=== PATIENT | female | born 1940 | race Caucasian/White ===

== ENCOUNTER 2019-11-12 05:38 | Observation (INO) | payer MEDICARE, OTHER ==
--- NOTE | 2019-11-09 16:06 | Diagnostic Imaging Report ---
EXAM: CHEST 2 VIEWS DATE: 11/09/2019 3:49 PM INDICATION: Preoperative evaluation COMPARISON: None FINDINGS: The trachea is midline. The lungs are symmetrically expanded without evidence for large focal consolidation, pneumothorax, or significant pleural effusion. The cardiomediastinal silhouette and pulmonary vasculature are within normal limits. Partially visualized cervical fusion hardware noted. There are degenerative changes of the visualized spine. No acute osseous abnormality is identified. The surrounding soft tissues are unremarkable. IMPRESSION: No acute cardiopulmonary process identified. Signed by: Dr. Gregor Pepper MD on 11/09/2019 4:03 PM
[2019-11-09 16:43] LABS: BASOPHILS % 0.5 % (0.0-1.0); EOSINOPHILS # (AUTO) 0.2 (0.0-0.4); EOSINOPHILS % 3.2 % (0.0-6.0); HEMATOCRIT 33.7 % (34.2-44.1); HEMOGLOBIN 10.9 g/dL (12.0-16.0); LYMPHOCYTES # (AUTO) 1.6 (1.0-3.2); MEAN CORPUSCULAR HEMOGLOBIN 30.7 pg (28-32); MEAN CORPUSCULAR HGB CONC 32.3 g/dL (31-35); MEAN CORPUSCULAR VOLUME 94.9 fL (81-99); MONOCYTES # (AUTO) 0.4 (0.2-0.8); MONOCYTES % 6.7 % (4.4-11.3); NEUTROPHILS # (AUTO) 4.3 (2.1-6.9); NEUTROPHILS % 65.4 % (38.7-80.0); PLATELET COUNT 271 x10e3/uL (140-360); RED BLOOD COUNT 3.55 x10e6/uL (3.6-5.1)
[2019-11-09 16:56] LABS: INR 0.97; PROTHROMBIN TIME 13.5 seconds (11.9-14.5)
[2019-11-09 16:57] LABS: PARTIAL THROMBOPLASTIN TIME 26.1 seconds (23.8-35.5)
[2019-11-09 17:01] LABS: ANION GAP 12.5 mmol/L (8-16); CALCIUM 9.3 mg/dL (8.4-10.2); CREATININE, SERUM 1.72 mg/dL (0.57-1.11); POTASSIUM 4.5 mmol/L (3.5-5.1)
[~2019-11-12] VITALS: Ht 157.5 cm; Wt 58.6 kg
[~2019-11-12 05:38] MED LIST: BACLOFEN10 MG PO; BUPROPION HCL75 MG PO; CRESTOR10 MG PO; DIOVAN HCT 80-1 EACH PO; FENOFIBRATE145 MG; NAMENDA10 MG PO; NAPROXEN250 MG PO; PROZAC20 MG PO; TRAZODONE HCL50 MG PO; TRICOR145 MG PO
[2019-11-12] MEDS ORDERED: THROMBIN FOR SOLN 5,000 UNIT VIAL ONE (06:51)
[2019-11-12] MEDS ORDERED: BACITRACIN 50,000 UNIT VIAL ONE (06:51)
[2019-11-12] MEDS ORDERED: BUPIVACAINE 0.25%/EPI 30ML SDV INJ ONE (06:51)
[2019-11-12] MEDS ORDERED: ACETAMINOPHEN 1000 MG/100 ML 100 ML IV ONE (07:21)
[2019-11-12] MEDS ORDERED: IBUPROFEN 800MG/ 200ML 200 ML IV ONE (07:21)
[2019-11-12] MEDS ORDERED: LIDOCAINE HCL (LTA) 4 ML SOLN ONE (07:21)
[2019-11-12] MEDS ORDERED: CEFAZOLIN SOD 1 GM/NS 50ML 50 ML IV ONE (07:34)
[2019-11-12] MEDS ORDERED: ZOLPIDEM TARTRATE 5 MG TAB PO PRN (10:00)
[2019-11-12] MEDS ORDERED: HYDROMORPHONE 2MG/ML 2 MG/ML ML IV PRN ×2 (10:00→14:00)
[2019-11-12] MEDS ORDERED: MORPHINE SULFATE 5 MG/ML VIAL IM PRN (10:00)
[2019-11-12] MEDS ORDERED: CARISOPRODOL 350 MG TAB PO PRN (10:00)
[2019-11-12] MEDS ORDERED: MAGNESIUM/ALUMINUM/SIMETHICONE 30 ML UDC PO PRN (10:00)
[2019-11-12] MEDS ORDERED: ONDANSETRON HCL INJ 2MG/ML 2ML 2 MG/ML VIAL IV PRN (10:00)
[2019-11-12] MEDS ORDERED: ACETAMINOPHEN 325 MG TAB PO PRN (10:00)
[2019-11-12] MEDS ORDERED: PROMETHAZINE HCL (IM) 25 MG/ML VIAL IM PRN (10:00)
[2019-11-12] MEDS ORDERED: OXYCODONE/ACETAMINOPHEN 5-325 1 EACH TABLET PO PRN ×2 (10:00→19:30)
[2019-11-12] MEDS ORDERED: CEPACOL SORE THROAT LOZENGES PO PRN (10:00)
--- NOTE | 2019-11-12 12:50 | Operative Report ---
DATE OF PROCEDURE: 11/12/2019 SURGEON: Zeke Strickland MD PREOPERATIVE DIAGNOSIS: Severe L4-L5 spinal stenosis with neurogenic claudication, M48.062. POSTOPERATIVE DIAGNOSIS: Severe L4-L5 spinal stenosis with neurogenic claudication, M48.062. PROCEDURE: 1. L4 bilateral decompressive laminectomy and L4-L5 bilateral medial facetectomies, 30390. 2. L5 bilateral partial decompressive laminectomy, 67425. ANESTHESIA: General. INDICATIONS: The patient is a 79-year-old woman who presents with severe L4-L5 spinal stenosis with neurogenic claudication. She was taken to surgery for bilateral decompressive laminectomy. PROCEDURE IN DETAIL: After induction of general anesthesia, the patient was placed on the operating table in prone position over Devaughn frame. Lumbar region was prepped and draped in sterile fashion. A preoperative x-ray was obtained. A small midline incision was created. The lumbar fascia was opened along the midline and subperiosteal dissection was carried out to expose the L4 and L5 lamina and the medial aspect of the hypertrophic facet joint. The 2nd x-ray confirmed correct localization. The operating microscope was brought in. The spinous processes of L4 and L5 were resected. A high-speed drill equipped with a 5 mm yahaira bur was used to drill the inferior 2/3 of lamina of L4 and superior 1/3 of the lamina of L5 and the medial rim of the L4-L5 facet joints bilaterally. The markedly hypertrophic ligamentum flavum was carefully dissected free of the dura and resected in a piecemeal fashion with 2 mm Kerrison rongeurs until the dura and the traversing L5 nerve roots were fully exposed and decompressed. Meticulous hemostasis was secured. Small piece of Gelfoam was left in the lateral recesses to maintain hemostasis. A small Hemovac drain was placed over the dura and brought out through a separate stab incision. The wound was irrigated and closed with 0 and 2-0 Vicryl sutures and 3-0 Monocryl sutures for the subcuticular layer. Steri-Strips and dressing were applied. The patient was awakened, extubated, and taken to postanesthesia care in stable condition. No intraoperative complications were encountered. ESTIMATED BLOOD LOSS: 20 mL. Zeke Strickland MD PP/MODL /[id number]
[2019-11-12] MEDS ORDERED: FENTANYL CITRATE/PF 100MCG/2 ML INJ ONE ×2 (13:20→20:18)
--- NOTE | 2019-11-12 14:14 | NUR ---
RECEIVED PATIENT FROM PACU. PATIENT A/O X3, EVEN RESPIRATIONS ON RA. LUNG SOUNDS CLEAR. BOWEL SOUNDS PRESENT. LEFT AC 20 GAUGE IV SL. ISRAEL HOSE AND SCD'S IN PLACE. LOWER BACK DRESSING CLEAN, DRY, AND INTACT. HEMOVAC DRAIN IN PLACE. PATIENT DENIES PAIN AT THIS TIME. ORIENTED PATIENT TO ROOM AND CALL LIGHT. BED LOW, WHEELS LOCKED, SIDE RAILS X2. CALL LIGHT IN REACH WILL CONTINUE TO MONITOR PATIENT.
[2019-11-12 14:40] VITALS: BP 155/66
[2019-11-12] MEDS ORDERED: ROCURONIUM BROMIDE 10 MG/ML 5ML VIAL IV ONE ×2 (14:41→14:43)
[2019-11-12] MEDS ORDERED: PROPOFOL IV EMULSION 10 MG/ML 20 ML VIAL ONE ×2 (14:41→14:43)
[2019-11-12] MEDS ORDERED: DEXAMETHASONE SOD PHOS INJ 4 MG/ML VIAL ONE ×2 (14:41→14:43)
[2019-11-12] MEDS ORDERED: ONDANSETRON HCL INJ 2MG/ML 2ML 2 MG/ML VIAL ONE ×2 (14:41→14:43)
[2019-11-12] MEDS ORDERED: GLYCOPYRROLATE INJ 0.2 MG/ML VIAL ONE ×2 (14:41→14:43)
[2019-11-12] MEDS ORDERED: LIDOCAINE HCL 2% LOCAL INJ 5 ML SDV VIAL INJ ONE ×2 (14:41→14:43)
[2019-11-12] MEDS ORDERED: NEOSTIGMINE 1 MG/ML 10ML VIAL ONE ×2 (14:41→14:43)
[2019-11-12] MEDS ORDERED: SEVOFLURANE INHAL SOLN 250 ML PEN BTL ONE ×2 (14:41→14:43)
[2019-11-12 14:52] VITALS: BP 155/66
[2019-11-12 14:56] VITALS: BP 155/66
[2019-11-12] MEDS: LACTATED RINGER'S 1,000 ML IV SCH ×2 (15:43→23:08)
--- NOTE | 2019-11-12 17:32 | NUR ---
PATIENT HAS VOIDED SINCE SURGERY.
[2019-11-12] MEDS: MEMANTINE 10 MG TAB PO SCH (17:41)
[2019-11-12] MEDS: CEFAZOLIN SOD 1 GM/NS 50ML 50 ML IV SCH (17:41)
[2019-11-12 20:00] VITALS: BP 166/74
[2019-11-12] MEDS ORDERED: TRAZODONE HCL 50 MG TAB PO SCH (21:00)
[2019-11-12] MEDS ORDERED: SIMVASTATIN 20 MG TAB PO SCH (21:00)
[2019-11-13] VITALS: BP 137/68
[2019-11-13] MEDS: CEFAZOLIN SOD 1 GM/NS 50ML 50 ML IV SCH ×2 (01:09→09:51)
[2019-11-13 04:00] VITALS: BP 140/58
--- NOTE | 2019-11-13 07:17 | NUR ---
REPORT GIVEN TO DAYSHIFT NURSE. PATIENT IN STABLE CONDITION. BED LOCKED AND IN LOW POSITION. CALL LIGHT WITHIN REACH. NO SIGNS IV INFILTRATION.
[2019-11-13] MEDS: LACTATED RINGER'S 1,000 ML IV SCH ×2 (07:40→16:00)
[2019-11-13 08:00] VITALS: BP 143/100
[2019-11-13] MEDS ORDERED: BUPROPION HCL 75 MG TAB PO SCH (09:00)
[2019-11-13] MEDS ORDERED: FLUOXETINE HCL 20 MG CAP PO SCH (09:00)
--- NOTE | 2019-11-13 09:30 | NUR ---
HEMOVAC REMOVED FROM PATIENTS BACK, 2X2 GAUZE WITH PAPER TAPE USED TO COVER HEMOVAC PUNCTURE SITE, ALL SUTURE MATERIAL REMOVED FROM HEMOVAC SITE.
[2019-11-13] MEDS: MEMANTINE 10 MG TAB PO SCH (09:52)
[2019-11-13 10:00] VITALS: BP 143/100
[2019-11-13 12:00] VITALS: BP 156/63
[2019-11-13 16:00] VITALS: BP 158/64
--- NOTE | 2019-11-13 16:16 | NUR ---
HEMOVAC REMOVAL SITE HAS NOT DRAINED, DRESSING IS DRY.
== END 2019-11-13 16:45 | disposition home or self-care (01) ==
LOC: OR 05:38 → PACU V 09:55 → MED/SURG 14:25
PROVIDERS: ADMIT Neurological Surgery; ATTEND Neurological Surgery
DX: M48.062 Spinal stenosis, lumbar region with neurogenic claudication (principal)
CPT/HCPCS: 36415; 63047; 63048; 71046; 72020; 80048; 85025; 85610; 85730; 86850; 86900; 87635; 88304; 88311; 93005; 97161; 97530; G0378 ×2; J0131; J0690 ×2; J1100; J2001; J2405 ×2; J2704; J2710; J3010; J7121

== ENCOUNTER 2020-01-25 12:29 | Emergency (ER) | payer MEDICARE, OTHER ==
[2020-01-25] MEDS ORDERED: SODIUM CHLORIDE 0.9% 1000ML 1,000 ML IV STA (12:49)
[2020-01-25] MEDS ORDERED: ONDANSETRON HCL INJ 2MG/ML 2ML 2 MG/ML VIAL IV STA (12:49)
[2020-01-25] MEDS ORDERED: ACETAMINOPHEN 325 MG TAB PO ONE (13:00)
--- NOTE | 2020-01-25 13:34 | Diagnostic Imaging Report ---
Exam: Head CT without contrast History: Dizziness, altered mental status Comparison studies: None Technique: Axial images were obtained from the skull base to the vertex. Coronal and sagittal images reconstructed from the axial data. Dose modulation, iterative reconstruction, and/or weight based adjustment of the mA/kV was utilized to reduce the radiation dose to as low as reasonably achievable. Findings: Scalp: No abnormalities. Bones: No fractures, blastic or lytic lesions. Brain sulci: Mildly prom and. Ventricles: Mild compensatory dilatation. No hydrocephalus. Extra-axial spaces: No masses, no fluid collection. Parenchyma: No mass, acute hemorrhage or acute or chronic cortical insults. A few subtle hypodensities in the supratentorial white matter are nonspecific but are most compatible with chronic microvascular ischemic changes. Sellar/suprasellar region: Craniocervical junction: Patent foramen magnum. No Chiari one malformation. Incidental findings: Bilateral intraocular lens replacements. Atherosclerotic calcifications in the carotid siphons. IMPRESSION: 1. No acute intracranial abnormalities. 2. Mild generalized parenchymal volume loss. 3. Mild chronic microvascular ischemic changes. Signed by: Dr. Wilfred Lieberman M.D. on 01/25/2020 1:30 PM
--- OUTSIDE RECORDS SUMMARY | 2020-01-25 13:37 | XMS REPORT | Continuity of Care Document ---
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 Name Role Phone [employer] Unavailable Un available Problems Problem Status Onset Date Classification Date Reported Comments Source Low back pain 05/10/2018 11/23/2018 [facility] Syncope and collapse 02/28/2018 09/13/2018 [facility] DX: [id number] AND COLLAPSE A ctive 02/21/2018 [facility] Pain in right foot 11/23/2018 JIMMY Gonzalez Other intervertebral disc degeneration, lumbar region 11/23/2018 JIM[facility] Gonzalez Other specified symptoms and signs invol ving the circulatory and respiratory systems 09/13/2018 [facility] Occlusion and stenosis of bilateral carotid arteries 09/13/2018 [facility] Medications No Data Provided for This Section Allergies, Adverse Reactions, Alerts Substance Category Reaction Severity Reaction type Status Date Reported Comments Source No Known Medication Allergies [facility] Immunizations Immunization Date Given Site Status Last Updated Comments Source pneumococcal 23-valent vaccine 07/24/2006 Right deltoid completed Jean JIMMY Gonzalez,[facility] Results No Data Provided for This Section Pathology Reports No Data Provided for This Section Diagnostic Reports Report Value Date Source Foot series DX Exam: Foot seri es DX, right, 3 views Reason for Exam: - right foot pain Comparison Exam: None Discussion: No fractures or dislocations are seen of the right foot. Moderate osteoarthritic changes seen within the 4th digit. No intraosseous lesions. No radiopaque foreign bodies. Impression: 1. No acute bony abnormalities seen wit hin the right foot. 05/05/2018 [facility] Gonzalez Spine lumbar series DX Exam: S pine lumbar series DX Reason for Exam: - lumbar spine pain Comparison Exam: X-ray 07/20/2016 Discussion: 5 non rib-bearing lumbar vertebral tracey s are seen. Vertebral body heights are maintained. No scoliosis identified. Grade 1 retrolisthesis seen of L3 on L5. Prominent right lateral bridging osteophyte formation seen at the L3/L4 level. Multilevel degenerative disc disease most prominent at the L3/L4 level. No suspicious osteoblastic or osteolytic lesions. Note that a lumbar spine x-ray cannot rule out ligamentous injuries or spinal cord abnormalities. No dilated loops of bowel within the visualized portions of the abdomen and pelvis. Impression: 1. Multilevel degenerative disc disease most prominent at the L3/L4 level. 05/05/2018 [facility] Gonzalez Carotid artery Doppler bilat US Patient Name: ROQUE CORRAL : 1940; Age: 77 years Female MR: [id number] Study: Carotid artery Doppler bilat US 02/24/2018 1:35 PM CDT Clinical Indication: - syncope, bruit. COMPARISON: None TECHNIQUE: Back-scale, color Doppler and spectral Doppler of the carotid arteries was performed. Any reported ICA stenoses indirectly reference the distal internal carotid diameter as the denominator for the stenosis measurement, utilizing consensus panel criteria. FINDINGS: RIGHT: No significant plaque. ICA PSV 106 cm/sec CCA PSV 85 cm/sec ICA/CCA ratio 1.25 Vertebral flow is antegrade. External carotid artery is patent. LEFT: Mild plaque formation. ICA PSV 90 cm/sec CCA PSV 84 cm/sec ICA/CCA ratio 1.07 Vertebral flow is antegrade. External carotid artery is patent. IMPRESSION: 1. RIGHT: ICA stenosis <50% by velocity criteria. 1. LEFT: ICA stenosis <50% by velocity jovita cowart. Consensus panel Doppler US criteria for diagnosis of ICA stenosis: Stenosis (%) ICA PSV (cm/sec) ICA/CCA ratio <50 <125 <2.0 50-69 125-230 2.0-4.0 >70 but less than >230 >4.0 near occlusion Near occlusion High, low, or Variable undetectable SL: [id number] 02/24/2018 [facility] Consultation Notes No Data Provided for This Section Discharge Summaries No Data Provided for This Section History and Physicals No Data Provided for This Section Vital Signs No Data Provided for This Section Encounters Location Location Details Encounter Type Encounter Number Reason For Visit Attending Provider ADM Date DC Date Status Source [facility] [place] [facility] [id number] Uday Jaskaran 09/27/2014 09/28/2014 [facility] [place] [facility] [id number] Uday Jessica 02/24/2018 02/25/2018 [facility] [place] [id number]2018 [facility] [place] Procedures No Data Provided for This Section Assessment and Plan No Data Provided for This Section Plan of Care No Data Provided for This Section Social History Social History Date Source No data available for this section 05/06/2018 [facility] [place] No data available for this section 02/25/2018 [facility] Family History No Data Provided for This Section Advance Directives No Data Provided for This Section Functional Status No Data Provided for This Section
--- NOTE | 2020-01-25 13:38 | Diagnostic Imaging Report ---
TECHNIQUE: Frontal view of the chest. INDICATION: ^Y ^NO APPETITE DUE TO LOSS OF TASTE, ? COVID ^[id number] ^[id number] COMPARISON: 11/09/2019 DISCUSSION: Limited evaluation due to portable technique. Lines and hardware: None Heart and mediastinum: Stable. Lungs and pleura: No focal airspace consolidation. No pleural effusion. No pneumothorax. Soft tissues and bones: No acute abnormality. IMPRESSION: Negative for acute intrathoracic process. Signed by: Brady Espinosa MD on 01/25/2020 1:34 PM
--- OUTSIDE RECORDS SUMMARY | 2020-01-25 13:38 | XMS REPORT | Continuity of Care Document ---
Author Author [facility] t Organization [facility] Address [facility] [place] [address] Phone Unavailable Care Team Providers Care Retail Shift Leader Name Role Phone SYLVESTER JESSICA PCP Higinio CAMEJO Attphys Unavailable KAYLIN JEONG Attphys Unavailable Gerardo Jessica Attphys Lizbeth Jessica Attphys KAYLIN JEONG Admphys Unavailable Gerardo Jessica Admphys Payers Payer Name Policy Type Policy Number Effective Date Expiration Date [facility] [id number] 2019 00:00:00 [facility] Cdc Review Covid19 [id number] [facility] Problems Condition Name Condition Details Condition Category Status Onset Date Resolution Date Last Treatment Date Treating Clinician Comments Source DX: A16=NDOXNNB AND COLLAPSE D X: P94=MVHNSQB AND COLLAPSE Active 02/21/2018 [facility] Active 2018-02-21 00:0 0:00 2018-02-24 13:19:00 Maria Isabel Booker Problem Condition Active [facility] Pain in right foot Pain in right foot 11/23/2018 [facility] Problem 2018-11-23 11:30:35 Maria Isabel Booker Other intervertebral disc degeneration, lumbar region Other intervertebral disc degeneration, lumbar region 11/23/2018 [facility] Problem 2018-11-23 11:30:35 Sergio Booker Other specified symptoms and signs invol ving the circulatory and respiratory systems Other specified symptoms and signs involving the circulatory and respiratory systems 09/13/2018 [facility] Problem 2018-09-13 13:08:36 Maria Isabel Booker Occlusion and stenosis of bilateral carotid arteries Occlusion and stenosis of bilateral carotid arteries 09/13/2018 [facility] Problem 2018-09-13 13:08:36 Maria Isabel Booker Low back pain Low back pain 05/10/2018 11/23/2018 JIMMY Gonzalez Problem 2018-05-10 05:34:11 2018-11-23 11:30:35 2018-11-23 11:30:35 Maria Isabel Booker Syncope and collapse Sync ope and collapse 02/28/2018 09/13/2018 [facility] Problem 2018-02-28 03:24:17 2018-09-13 13:0 8:36 2018-09-13 13:08:36 Maria Isabel Booker Allergies, Adverse Reactions, Alerts Allergy Name Allergy Type Status Severity Reaction(s) Onset Date Inacti ve Date Treating Clinician Comments Source Morphine Allergy to substance Active Mild ITCHES 2009-07-11 00:00:00 [facility] No Known Medication Allergies No Known Medication [facility] Social History Social Habit Start Date Stop Date Quantity Comments Source Social History 2018-02-25 04:59:00 2018-02-25 04:59:00 Maria Isabel Booker Sex Assigned At 1940 00:00:00 1940 00:00:00 [facility] Medications Ordered Medication Name Filled Medication Name Start Date Stop Da te Current Medication? Ordering Clinician Indication Dosage Frequency Signature (SIG) Comments Components Source Bupropion Hcl Bupropion Hcl Yes [facility] Fluoxetine Hcl (Prozac) 20 Mg CAPSULE Fluoxetine Hcl (Prozac) 20 Mg CAPSULE Yes 40 [facility] Memantine Hcl (Namenda) 10 Mg TABLET Memantine Hcl (Namenda) 10 Mg TABLET Yes 10 [facility] Rosuvastatin Calcium (Crestor) 10 Mg TAB Rosuvastatin Calcium (Crestor) 10 Mg TAB Yes 10 [facility] Trazodone Hcl Trazodone Hcl Yes 50 [facility] Baclofen Baclofen 2019-11-09 00:00:00 No 5 [facility] Fenofibrate (Tricor) 145 Mg TAB Fenofibrate (Tricor) 145 Mg TAB 2019-11-09 00:00:00 No 160 Use As Directed [facility] Fenofibrate Nanocrystallized (Fenofibrate) 145 Mg TABL ET Fenofibrate Nanocrystallized (Fenofibrate) 145 Mg TABLET 2019-11-09 00:00:00 No [facility] Naproxen 2019-11-09 00:00:00 No 500 [facility] Valsartan/Hydrochlorothiazide (Diovan Hct 80-12.5 Mg T ablet) 1 Each TABLET Valsartan/Hydrochlorothiazide (Diovan Hct 80-12.5 Mg Tablet) 1 Each TABLET 2019-11-09 00:00:00 No 1 Daily [facility] Vital Signs Vital Name Observation Time Observation Value Comments Source Body Temperature 2019-11-13 12:00:00 97.7 [degF] [facility] Weight 2019-11-12 14:52:00 129.25 [lb_av] [facility] BMI (Body Mass Index) 2019-11-12 14:52:00 23.6 kg/m2 [facility] Procedures Procedure Date / Time Performed Performing Clinician [facility] X-ray of chest, two views 2019-11-09 00:00:00 I [facility] Plan of Care Planned Activity Planned Date Details Comments Source Instructions [facility] Encounters Start Date/Time End Date/Time [facility] ID Source 2018-05-05 14:32:00 2018-05-05 23:59:00 [id number] 2018-02-24 13:10:00 2018-02-24 23:59:00 Outpatient Higinio Jessica [id number] 2014-09-27 13:06:00 2014-09-27 23:59:00 Outpatient Higinio Jessica [id number] Results Test Description Test Time Test Comments Results Result Comments Source CT BRAIN WO 2020-01-25 13:27:00 [facility] [address] [address] Patient Name: ROQUE CORRAL MR #: [id number] : 1940 Age/Sex: 79/F Req #: [id number] Adm Physician: Ordered by: LENA CAMEJO MD Report #: [id number] Location: ER Room/Bed: Procedure: [id number] CT/CT BRAIN WO Exam Date: 01/25/20 Exam Time: 1307 REPORT STATUS: Signed Exam: Head CT without contrast History: Dizziness, altered mental status Comparison studies: None Technique: Axial images were obtained from the skull base to the vertex. Coronal and sagittal images reconstructed from the axial data. Dose modulation, iterative reconstruction, and/or weight based adjustment of the mA/kV was utilized to reduce the radiation dose to as low as reasonably achievable. Findings: Scalp: No abnormalities. Bones: No fractures, blastic or lytic lesions. Brain sulci: Mildly prom and. Ventricles: Mild compensatory dilatation. No hydrocephalus. Extra-axial spaces: No masses, no fluid collection. Parenchyma: No mass, acute hemorrhage or acute or chronic cortical insults. A few subtle hypodensities in the supratentorial white matter are nonspecific but are most compatible with chronic microvascular ischemic changes. Sellar/suprasellar region: Craniocervical junction: Patent foramen magnum. No Chiari one malformation. Incidental findings: Bilateral intraocular lens replacements. Atherosclerotic calcifications in the carotid siphons. IMPRESSION: 1. No acute intracranial abnormalities. 2. Mild generalized parenchymal volume loss. 3. Mild chronic microvascular ischemic changes. Signed by: Dr. Heavenly Lieberman M.D. on 01/25/2020 1:30 PM Dictated By: HEAVENLY LIEBERMAN MD 29 Transcribed By: JON on 01/25/201329 COPY TO: LENA CAMEJO MD Blood leukocytes automated count (number/volume) 2019-11-09 16:34:00 Test Item White Blood Count (test code = 6690-2) 6.57 4.8-10.8 [facility] (number/volume)2019-11-09 16:34:00* Test Item Value Reference Range Interpretation Comments Red Blood Count (test code = 789-8) 3.55 3.6-5.1 [facility] measurement (moles/volume)2019-11-09 16:34:00* Test Item Value Reference Range Interpretation Comments Hemoglobin (test code = 30736-3) 10.9 12.0-16.0 [facility] blood hematocrit (volume fraction)2019-11-09 16:34:00* Test Item Value Reference Range Interpretation Comments Hematocrit (test code = 4544-3) 33.7 34.2-44.1 [facility] erythrocyte mean corpuscular kmesdt7150-61-43 16:34:00* Test Item Value Reference Range Interpretation Comments Mean Corpuscular Volume (test code = 787-2) 94.9 81-99 [facility] mean corpuscular hemoglobin (mass per erythrocyte)2019-11-09 16:34:00* Test Item Value Reference Range Interpretation Comments Mean Corpuscular Hemoglobin (test code = 785-6) 30.7 28-32 [facility] eryth[facility] mean corpuscular hemoglobin concentration measurement (mass/volume)2019-11-09 16:34:00* Test Item Value Reference Range Interpretation Comments Mean Corpuscular Hemoglobin Concent (test code = 786-4) 32.3 31-35 [facility] HospitalRDW [id number]-[id number] 16:34:00* Test Item Value Reference Range Interpretation Comments Red Cell Distribution Width (test code = 28697-6) 12.0 11.7 -14.4 [facility] blood platelet count (count/volume)2019-11-09 16:34:00* Test Item Value Reference Range Interpretation Comments Platelet Count (test code = 777-3) 271 140-360 [facility] blood segmented neutrophil count as percentage of total dvzohqtvda0834-20-59 16:34:00* Test Item Value Reference Range Interpretation Comments Neutrophils (%) (Auto) (test code = 98586-0) 65.4 38.7-80.0 [facility] Hospital[facility] blood lymphocyte count as percentage ot total wbliwuaqpa1139-92-87 16:34:00* Test Item Value Reference Range Interpretation Comments Lymphocytes (%) (Auto) (test code = 736-9) 24.0 18.0-39.1 [facility] HospitalAutom[facility] blood monocyte count as percentage of total fxpfeebjpo0487-81-78 16:34:00* Test Item Value Reference Range Interpretation Comments Monocytes (%) (Auto) (test code = 5905-5) 6.7 4.4-11.3 [facility] HospitalAutom[facility] blood eosinophil count as percentage of total wmhmnchgjf5967-45-72 16:34:00* Test Item Value Reference Range Interpretation Comments Eosinophils (%) (Auto) (test code = 713-8) 3.2 0.0-6.0 [facility] HospitalAutomated blood basophil count as percentage of total npgfsquowx0028-15-74 16:34:00* Test Item Value Reference Range Interpretation Comments Basophils (%) (Auto) (test code = 706-2) 0.5 0.0-1.0 [facility] HospitalFluoroscopic procedure less than one hour iwkjythu2960-54-14 16:34:00* Test Item Value Reference Range Interpretation Comments IM GRANULOCYTES % (test code = IM GRANULOCYTES %) 0.2 0.0- 1.0 [facility] HospitalAutom[facility] blood neutrophil count 2019-11-09 16:34:00* Test Item Value Reference Range Interpretation Comments Neutrophils # (Auto) (test code = 751-8) 4.3 2.1-6.9 [facility] HospitalBlood lymphocytes count (number/volume) 2019-11-09 16:34:00* Test Item Value Reference Range Interpretation Comments Lymphocytes # (Auto) (test code = 20041-1) 1.6 1.0-3.2 [facility] HospitalBlood monocytes automated count (number/volume)2019-11-09 16:34:00* Test Item Value Reference Range Interpretation Comments Monocytes # (Auto) (test code = 742-7) 0.4 0.2-0.8 [facility] HospitalAutomated blood eosinophil count 2019-11-09 16:34:00* Test Item Value Reference Range Interpretation Comments Eosinophils # (Auto) (test code = 711-2) 0.2 0.0-0.4 [facility] HospitalAutomated blood basophil count (count/volume)2019-11-09 16:34:00* Test Item Value Reference Range Interpretation Comments Basophils # (Auto) (test code = 704-7) 0.0 0.0-0.1 [facility] HospitalFluoroscopic procedure less than one hour mzwaniyc8154-95-94 16:34:00* Test Item Value Reference Range Interpretation Comments Absolute Immature Granulocyte (auto (jennifer t code = Absolute Immature Granulocyte (auto) 0.01 0-0.1 [facility] HospitalProthrombin time (PT) in platelet poor plasma by coagulation dndlf3755-41-27 16:34:00* Test Item Value Reference Range Interpretation Comments Prothrombin Time (test code = 5902-2) 13.5 11.9-14.5 [facility] HospitalINR in Platelet poor plasma by Coagulation vpxjj7865-21-62 16:34:00* Test Item Value Reference Range Interpretation Comments Prothromb Time International Ratio (test code = 6301-6) 0.97 Oral Anticoagulant Therapy INR Values:1. Low Intensity Therapy 1.5 - 2.02 . Moderate Intensity Therapy 2.0 - 3.03. High Intensity Therapy(1) 2.5 - 3. 54. High Intensity Therapy(2) 3.0 - 4.05. Panic Value INR > 5.0 [facility] HospitalActivated partial thromboplastin time (aPTT) in platelet poor plasma by coagulation jlrpa5788-65-53 16:34:00* Test Item Value Reference Range Interpretation Comments Activated Partial Thromboplast Time (test code = 08261-1) 26.1 23.8-35.5 [facility] sodium measurement (moles/volume)2019-11-09 16:34:00* Test Item Value Reference Range Interpretation Comments Sodium Level (test code = 2951-2) 140 136-145 [facility] potassium measurement (moles/volume)2019-11-09 16:34:00* Test Item Value Reference Range Interpretation Comments Potassium Level (test code = 2823-3) 4.5 3.5-5.1 [facility] chloride measurement (moles/volume)2019-11-09 16:34:00* Test Item Value Reference Range Interpretation Comments Chloride Level (test code = 2075-0) 106 98-107 [facility] or plasma carbon dioxide, total measurement (moles/volume)2019-11-09 16:34:00* Test Item Value Reference Range Interpretation Comments Carbon Dioxide Level (test code = 2028-9) 26 22-29 [facility] or plasma anion qfh2030-84-60 16:34:00* Test Item Value Reference Range Interpretation Comments Anion Gap (test code = 35633-7) 12.5 8-16 [facility] urea nitrogen measurement (mass/volume)2019-11-09 16:34:00* Test Item Value Reference Range Interpretation Comments Blood Urea Nitrogen (test code = 3094-0) 20 7-26 [facility] plasma creatinine measurement (mass/volume)2019-11-09 16:34:00* Test Item Value Reference Range Interpretation Comments Creatinine (test code = 2160-0) 1.72 0.57-1.11 [facility] plasma urea nitrogen/creatinine mass sencg6260-05-99 16:34:00* Test Item Value Reference Range Interpretation Comments BUN/Creatinine Ratio (test code = 3097-3) 12 6-25 [facility] HospitalEstimated glomerular filtration rate (GFR) rcktxgnctbine0779-88-34 16:34:00* Test Item Value Reference Range Interpretation Comments Estimat Glomerular Filtration Rate (test code = 192403084) 29 >60 Ranges were taken from the National Kidney Disease Education Program and the [facility] Foundation literature.Reference ranges:60 or greater: Lthros05-20 ( for 3 consecutive months): Chronic kidney disease 15 or less: Kidney failureCHI Harlingen Medical CenterGlucose jycndtmxmsf4492-13-73 16:34:00* Test Item Value Reference Range Interpretation Comments Glucose Level (test code = XVG7272) 92 74-118 [facility] or plasma calcium measurement (mass/volume)2019-11-09 16:34:00* Test Item Value Reference Range Interpretation Comments Calcium Level (test code = 76421-7) 9.3 8.4-10.2 [facility] HospitalCHEST 2 IQDTH9947-36-58 16:02:00 [facility] [address] [place] [address] Patient Name: ROQUE CORRAL MR #: [id number] : 1940 Age/Sex: 79/F Req #: [id number] Adm Physician: KAYLIN JEONG MD Ordered by: KAYLIN JEONG MD Report #: [id number] Location: MED/SURG Room/Bed: [facility] Procedure: [id number] DX/CHEST 2 EWS Exam Date: 11/09/19 Exam Time: 1549 REPORT STATUS: Signed EXAM: CHEST 2 VIEWS DATE: 11/09/2019 3:49 PM INDICATION: Preoperative evaluation COM PARISON: None FINDINGS: The trachea is midline. The lungs are symmetrical ly expanded without evidence for large focal consolidation, pneumothorax, or s ignificant pleural effusion. The cardiomediastinal silhouette and pulmonary vasculature are within normal limits. Partially visualized cervical fusion solomon rdware noted. There are degenerative changes of the visualized spine. No acute osseous abnormality is identified. The surrounding soft tissues are unremarka ble. IMPRESSION: No acute cardiopulmonary process identified. Signed by: Dr. Gregor Pepper MD on 11/09/2019 4:03 PM Dictated By: GREGOR LIAO MD 02 Transcribe d By: JON on 11/09/191602 COPY TO: KAYLIN JEONG MD Fluoroscopic procedure less than one hour [id number] 15:53:00* Test Item Value Reference Range Interpretation Comments Coronavirus (PCR) (test code = Coronavirus (PCR)) NOT DETECTED NOTD ETECTED SARS-COV-2 (COVID19), HIGHRISK, RT-PCRNegative results do not preclude SARS-CoV- 2 infection and should not be used as the sole basis for patient management deci sions. Negative results must be combined with clinical observations, patient his tory, and epidemiological information. Optimum specimen types and timing for pea k viral levels during infections caused by SARS-CoV-2 have not been determined. Collection of multiple specimens ot types of specimens may be necessary to detec t virus. Improper specimen collection and handling, sequence variability under p rimers/probes, or organism present below the limit of detection may lead to fals e negative results. Positive and negative predictive values of testing are highl y dependent on prevalance. False negative test results are more likely when prev alence is high.The expected result is negative (not detected).The SARS-CoV-2 jennifer t is intended for the qualitative detection of nucleic acid from SARS-CoV-2 in n asopharyngeal and oropharyngeal swab samples from patients who meet COVID-19 cli nical and or epidemiological criteria. For lower respiratory tract specimens, th e assay is submitted for authoriztion by FDA under an Emergency Use Authorizatio n (EUA). Testing methodology is real time RT-PCR. If received as separate collec tion devices, nasopharygeal and oropharyngeal specimens are combined for analysi s. Additional specimens may be split to a separate accession for analysi and rep orting as this test includes a single unit of service.Test results must be corre lated with clinical presentation and evaluated in the context of other laborator y and epidemiologic data. Test performance can be affected because the epidemiol ogy and clinical spectrum of infection caused by SARS-CoV-2 is not fully known. For example, the optimum types of specimens to collect and when during the cours e of infection these specimens are most likely to contain detectable viral RNA m ay not be known.This test has not been Food and Drug Administration (FDA) cleare d or approved and has been authorized by FDA under an Emergency Use Authorizatio n (EUA). The test is only authorized for the duration of the declaration that ci rcumstances exist justifying the authorization of emergency use of in vitro diag nostic tests for detection and/or diagnosis of SARS-CoV-2 under section 564(b) o f the Act, 21 U.S.C. section 360bbb-3(b)(1), unless the authorization is termina chuck or revoked sooner. [facility] are certified under the C linical Laboratory Improvement Amendments of 1988 (CLIA), 42 U.S.C. section 263a , to perform high complexity tests.Testing performed by [facility] [id number] [place], [place] [phone] Director: Danial Casillas M.D.CLIA # [id number]
[2020-01-25 13:53] LABS: HEMATOCRIT 35.5 % (34.2-44.1); HEMOGLOBIN 11.3 g/dL (12.0-16.0); LYMPHOCYTES # (AUTO) 0.3 (1.0-3.2); LYMPHOCYTES % 10.5 % (18.0-39.1); MEAN CORPUSCULAR HEMOGLOBIN 29.4 pg (28-32); MEAN CORPUSCULAR HGB CONC 31.8 g/dL (31-35); MEAN CORPUSCULAR VOLUME 92.4 fL (81-99); MONOCYTES # (AUTO) 0.3 (0.2-0.8); MONOCYTES % 10.9 % (4.4-11.3); NEUTROPHILS # (AUTO) 2.5 (2.1-6.9); NEUTROPHILS % 78.3 % (38.7-80.0); PLATELET COUNT 207 x10e3/uL (140-360); RED BLOOD COUNT 3.84 x10e6/uL (3.6-5.1); RED CELL DISTRIBUTION WIDTH 12.1 % (11.7-14.4)
[2020-01-25 13:58] LABS: INR 0.93; PROTHROMBIN TIME 12.9 seconds (11.9-14.5)
[2020-01-25 13:59] LABS: PARTIAL THROMBOPLASTIN TIME 25.7 seconds (23.8-35.5)
[2020-01-25 14:07] LABS: ALBUMIN 3.6 g/dL (3.5-5.0); ALBUMIN/GLOBULIN RATIO 1.2 (0.8-2.0); ANION GAP 17.1 mmol/L (8-16); CALCIUM 8.6 mg/dL (8.4-10.2); CREATININE, SERUM 1.79 mg/dL (0.57-1.11); POTASSIUM 4.1 mmol/L (3.5-5.1)
[2020-01-25 14:34] LABS: CREATINE KINASE MB 0.8 ng/mL (0-5.0); THYROID STIMULATING HORMONE 0.902 uIU/mL (0.350-4.940)
[2020-01-25] MEDS ORDERED: ACETAMINOPHEN 325 MG TAB ONE (16:08)
[2020-01-25] MEDS ORDERED: SODIUM CHLORIDE 0.9% 1000ML 1,000 ML ONE (16:08)
--- NOTE | 2020-01-25 18:54 | Emergency Department Note ---
History of Present Illnes History of Present Illness Chief Complaint: COVID PUI History of Present Illness This is a 79 year old female CALLED EMS, STATES SHE WAS SCARED SHE HAS COVID BECAUSE HER NEIGHBOR HAS IT AND HAS BEEN IN ICU X 2 WEEKS. SHE ALSO C/O OF FEELING LIGHTHEADED AND "FAINTING SENSATION" WHEN SHE STANDS UP. HAS LOST HER SENSE OF TASTE, POOR APPETITE. THIS HAS BEEN GOING ON FOR 2 WEEKS. 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 Any updates have been documented here. Past Medical History Recent Fever: No Clinical Suspicion of Infectio: No New/Unexplained Change in Ment: No Past Medical History: Hyperlipedemia Other Medical History: DEPRESSION STRESS INCONTENCE Past Surgical History: , Knee Replacement Other Surgery: NECK Social History Smoking Cessation: Never Smoker Counseling Performed: No Alcohol Use: Occasional Any Illegal Drug Use: No TB Exposure/Symptoms: No Physically hurt or threatened: No Family History Family history of heart diseas: No Other Last Tetanus: UNKNOWN Any Pre-Existing Lines (PICC,: No Review of Systems Review of Systems Constitutional: Reports as per HPI EENTM: Reports no symptoms Cardiovascular: Reports no symptoms Respiratory: Reports no symptoms Gastrointestinal: Reports as per HPI, Reports nausea Genitourinary: Reports no symptoms Musculoskeletal: Reports no symptoms Integumentary: Reports no symptoms Neurological: Reports no symptoms Psychological: Reports no symptoms Endocrine: Reports no symptoms Hematological/Lymphatic: Reports no symptoms Physical Exam Related Data Allergies: Coded Allergies: morphine (Verified Allergy, Mild, ITCHES, 07/11/09) Triage Vital Signs Vital Signs Date Time Temp Pulse Resp B/P (MAP) Pulse Ox O2 Delivery O2 Flow Rate FiO2 01/25/20 12:45 100.0 62 16 146/56 98 Room Air Vital signs reviewed: Yes Physical Exam CONSTITUTIONAL Constitutional: Present well-developed, Present well-nourished HENT HENT: Present normocephalic, Present atraumatic, Present mucosae dry, Present nose normal HENT L/R: Present left ext ear normal, Present right ext ear normal EYES Eyes: Reports PERRL, Reports conjunctivae normal NECK Neck: Present ROM normal PULMONARY Pulmonary: Present effort normal, Present breath sounds normal CARDIOVASCULAR Cardiovascular: Present regular rhythm, Present heart sounds normal, Present capillary refill normal, Present normal rate GASTROINTESTINAL Abdominal: Present soft, Present nontender, Present bowel sounds normal GENITOURINARY Genitourinary: Present exam deferred SKIN Skin: Present warm, Present dry MUSCULOSKELETAL Musculoskeletal: Present ROM normal NEUROLOGICAL Neurological: Present alert, Present oriented x 3, Present no gross motor or sensory deficits PSYCHOLOGICAL Psychological: Present mood/affect normal, Present judgement normal Results Laboratory Result Diagram: 01/25/20 1258 01/25/20 1258 Laboratory Laboratory Tests Test 01/25/20 12:58 White Blood Count 3.13 x10e3/uL (4.8-10.8) Red Blood Count 3.84 x10e6/uL (3.6-5.1) Hemoglobin 11.3 g/dL (12.0-16.0) Hematocrit 35.5 % (34.2-44.1) Mean Corpuscular Volume 92.4 fL (81-99) Mean Corpuscular Hemoglobin 29.4 pg (28-32) Mean Corpuscular Hemoglobin Concent 31.8 g/dL (31-35) Red Cell Distribution Width 12.1 % (11.7-14.4) Platelet Count 207 x10e3/uL (140-360) Neutrophils (%) (Auto) 78.3 % (38.7-80.0) Lymphocytes (%) (Auto) 10.5 % (18.0-39.1) Monocytes (%) (Auto) 10.9 % (4.4-11.3) Eosinophils (%) (Auto) 0.0 % (0.0-6.0) Basophils (%) (Auto) 0.0 % (0.0-1.0) Neutrophils # (Auto) 2.5 (2.1-6.9) Lymphocytes # (Auto) 0.3 (1.0-3.2) Monocytes # (Auto) 0.3 (0.2-0.8) Eosinophils # (Auto) 0.0 (0.0-0.4) Basophils # (Auto) 0.0 (0.0-0.1) Absolute Immature Granulocyte (auto 0.01 x10e3/uL (0-0.1) Prothrombin Time 12.9 seconds (11.9-14.5) Prothromb Time International Ratio 0.93 Activated Partial Thromboplast Time 25.7 seconds (23.8-35.5) Sodium Level 134 mmol/L (136-145) Potassium Level 4.1 mmol/L (3.5-5.1) Chloride Level 103 mmol/L (98-107) Carbon Dioxide Level 18 mmol/L (22-29) Anion Gap 17.1 mmol/L (8-16) Blood Urea Nitrogen 17 mg/dL (7-26) Creatinine 1.79 mg/dL (0.57-1.11) Estimat Glomerular Filtration Rate 27 ML/MIN (60-) BUN/Creatinine Ratio 9 (6-25) Glucose Level 100 mg/dL (74-118) Calcium Level 8.6 mg/dL (8.4-10.2) Magnesium Level 2.0 MG/DL (1.3-2.1) Total Bilirubin 0.4 mg/dL (0.2-1.2) Aspartate Amino Transf (AST/SGOT) 34 IU/L (5-34) Alanine Aminotransferase (ALT/SGPT) 38 IU/L (0-55) Alkaline Phosphatase 96 IU/L (40-150) Creatine Kinase 25 IU/L (29-168) Creatine Kinase MB 0.80 ng/mL (0-5.0) Troponin I 0.014 ng/mL (0-0.300) B-Type Natriuretic Peptide 18.6 pg/mL (0-100) Total Protein 6.5 g/dL (6.5-8.1) Albumin 3.6 g/dL (3.5-5.0) Globulin 2.9 g/dL (2.3-3.5) Albumin/Globulin Ratio 1.2 (0.8-2.0) Thyroid Stimulating Hormone (TSH) 0.902 uIU/mL (0.350-4.940) Coronavirus (PCR) Detected (NOTDETECTED) Lab results reviewed: Yes Imaging Imaging results reviewed: Yes Procedures 12 Lead ECG Interpretation ECG Interpretation : ECG: ECG 1 Tobacco Drummer: Interpreted by ED physician Date: Jan 25, 2020 Time: 12:58 Rhythm: sinus rhythm Rate: normal BPM: 63 QRS axis: normal ST segments normal: Yes T waves normal: Yes Clinical Impression: normal ECG Assessment & Plan Medical Decision Making MDM WEAK, POSTURAL DIZZINESS, LOSS OF APPETITE - CBC, CHEM, ECG, CARDIACS, BNP, CX'S, UA/CX, CXR, COVID SWAB, CT BRAIN - R/O COVID, PNEUMONIA, BRAIN LESION/MASS/CVA, DEHYDRATION, RENAL INSUFF, STEMI/NSTEMI Reassessment Reassessment LAST CHEM SHOWED RENAL INSUFF WITH SIMILAR GFR. DC HOME, PUSH PO FLUIDS, ZPACK, SELF-QUARANTINE, ZOFRAN, ZPACK, ALBUTEROL NEB, PRONING, F/U PCP, RTED SOB/CP, WORSENING SX'S Assessment & Plan Final Impression: (1) Renal insufficiency (2) COVID-19 (3) Dehydration Depart Disposition: HOME, SELF-CARE Last Vital Signs Date Time Temp Pulse Resp B/P (MAP) Pulse Ox O2 Delivery O2 Flow Rate FiO2 01/25/20 16:10 98.9 68 14 180/63 100 01/25/20 12:45 Room Air Home Meds Reported Medications Bupropion Hcl (BUPROPION HCL) 75 Mg Tablet, PO DAILY, #30 TAB 11/09/19 Memantine Hcl (NAMENDA) 10 Mg Tablet, 10 MG PO BID, TAB 11/09/19 Rosuvastatin Calcium (CRESTOR) 10 Mg Tab, 10 MG PO DAILY THERAPEUTICALLY SUBSTITUTED WITH SIMVASTATIN 40MG 11/09/19 Trazodone Hcl (TRAZODONE HCL) 50 Mg Tablet, 50 MG PO HS, #30 TAB 07/21/16 Fluoxetine Hcl (PROZAC) 20 Mg Capsule, 40 MG PO DAILY, #30 TAB 07/21/16 Medications in the ED Ondansetron HCl 4 mg ONCE STAT IV Last administered on 01/25/20at 16:08; Admin Dose 4 MG; Start 01/25/20 at 12:49; Stop 01/25/20 at 13:08; Status DC Sodium Chloride 1,000 ml @ 0 mls/hr Q0M STAT IV Last administered on 01/25/20at 16:08; Admin Dose 1,000 MLS/HR; Start 01/25/20 at 12:49; Stop 01/25/20 at 12:55; Status DC Acetaminophen 975 mg ONCE ONCE PO Last administered on 01/25/20at 16:08; Admin Dose 975 MG; Start 01/25/20 at 13:00; Stop 01/25/20 at 13:08; Status DC Acetaminophen 975 mg STK-MED ONCE .ROUTE ; Start 01/25/20 at 16:08; Stop 01/25/20 at 16:02; Status DC Sodium Chloride 1,000 ml @ ud STK-MED ONCE .ROUTE ; Start 01/25/20 at 16:08; Stop 01/25/20 at 16:02; Status DC LENA CAMEJO MD Jan 25, 2020 18:54
== END 2020-01-25 19:19 | disposition home or self-care (01) ==
LOC: ER 12:31
DX: U07.1 COVID-19 (principal); N28.9 Disorder of kidney and ureter, unspecified; E86.0 Dehydration; R50.9 Fever, unspecified; E78.5 Hyperlipidemia, unspecified; N39.3 Stress incontinence (female) (male); F32.9 Major depressive disorder, single episode, unspecified
CPT/HCPCS: 36415; 70450; 71045; 80053; 82550; 82553; 83735; 83880; 84443; 84484; 85025; 85610; 85730; 87040; 93005; 99284; J7030; U0002

== ENCOUNTER 2020-01-27 12:08 | Inpatient (IN) | payer MEDICARE, OTHER ==
[~2020-01-27] VITALS: Ht 157.5 cm; Wt 58.5 kg
--- NOTE | 2020-01-27 12:25 | Emergency Department Note ---
History of Present Illnes History of Present Illness Chief Complaint: General Medicine Complaints History of Present Illness This is a 79 year old female Chief Complaint Comment COVID +. SON WENT TO HOUSE TO DROP OFF FOOD AND MOM WOULD NOT ANSWER DOOR. SHE WAS IN BED, UNABLE TO GET UP. SEVERE WEAKNESS. PER SON, NO APPETITE. 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 Arrival Mode: [facility] Treatment ADJUSTER ELECTRICAL CONTACTS: IV, EKG Additional Treatment ADJUSTER ELECTRICAL CONTACTS: NONE Cattle Sorter Required: No Onset (how long ago): day(s) (3) Location: generalized Quality: weakness Radiation: Reports non-radiation Severity: mild Onset quality: gradual Duration (how long): day(s) Timing of current episode: constant Progression: worsening Chronicity: new Context: Reports recent illness (COVID); Denies recent surgery Relieving factors: none Exacerbating factors: none Associated symptoms: Reports denies other symptoms Treatments prior to arrival: none Past Medical/Family History Physician Review I have reviewed the patient's past medical and family history. Any updates have been documented here. Past Medical History Recent Fever: No Clinical Suspicion of Infectio: No New/Unexplained Change in Ment: No Past Medical History: Hyperlipedemia Other Medical History: DEPRESSION STRESS INCONTENCE Past Surgical History: , Knee Replacement Other Surgery: NECK Other Last Tetanus: UNKNOWN Review of Systems Review of Systems Constitutional: Reports weakness (Generalized) EENTM: Reports no symptoms Cardiovascular: Reports no symptoms Respiratory: Reports no symptoms Gastrointestinal: Reports no symptoms Genitourinary: Reports no symptoms Musculoskeletal: Reports no symptoms Integumentary: Reports no symptoms Neurological: Reports no symptoms Psychological: Reports no symptoms Endocrine: Reports no symptoms Hematological/Lymphatic: Reports no symptoms Physical Exam Related Data Allergies: Coded Allergies: morphine (Verified Allergy, Mild, ITCHES, 07/11/09) Triage Vital Signs Vital Signs Date Time Temp Pulse Resp B/P (MAP) Pulse Ox O2 Delivery O2 Flow Rate FiO2 01/27/20 12:15 98.3 64 18 186/97 97 Room Air Vital signs reviewed: Yes Physical Exam CONSTITUTIONAL Constitutional: Present well-developed, Present well-nourished HENT HENT: Present normocephalic, Present atraumatic, Present oropharynx clear/moist, Present nose normal HENT L/R: Present left ext ear normal, Present right ext ear normal EYES Eyes: Reports PERRL, Reports conjunctivae normal NECK Neck: Present ROM normal PULMONARY Pulmonary: Present effort normal, Present breath sounds normal CARDIOVASCULAR Cardiovascular: Present regular rhythm, Present heart sounds normal, Present capillary refill normal, Present normal rate GASTROINTESTINAL Abdominal: Present soft, Present nontender, Present bowel sounds normal GENITOURINARY Genitourinary: Present exam deferred SKIN Skin: Present warm, Present dry MUSCULOSKELETAL Musculoskeletal: Present ROM normal NEUROLOGICAL Neurological: Present alert, Present oriented x 3, Present no gross motor or sensory deficits PSYCHOLOGICAL Psychological: Present mood/affect normal, Present judgement normal Procedures 12 Lead ECG Interpretation ECG Interpretation : Cattle Sorter: Interpreted by ED physician Date: Jan 27, 2020 Rhythm: sinus rhythm Rate: normal QRS axis: normal ST segments normal: Yes T waves normal: Yes Clinical Impression: normal ECG Assessment & Plan Medical Decision Making MDM 79-year-old female presents for weakness. She is recently diagnosed coronavirus. This is her second visit this week for weakness. Per family they have been checking up on her every day. Examination shows an overall well-appearing 79-year-old female no acute distress. Vital signs stable, within except for limits. CT head and labs are all unremarkable. She was given a 500 [address] and [address] tested. She'll be discharged home with instructions to follow up with her primary care doctor. Informed her that she needs to have her relatives check on her and also made her family aware of this. Reassessment Reassessment time: 13:52 Reassessment Well appearing, NAD Assessment & Plan Final Impression: (1) Fatigue Depart Disposition: HOME, SELF-CARE Last Vital Signs Date Time Temp Pulse Resp B/P (MAP) Pulse Ox O2 Delivery O2 Flow Rate FiO2 01/27/20 12:15 98.3 64 18 186/97 97 Room Air Home Meds Reported Medications Bupropion Hcl (BUPROPION HCL) 75 Mg Tablet, PO DAILY, #30 TAB 11/09/19 Memantine Hcl (NAMENDA) 10 Mg Tablet, 10 MG PO BID, TAB 11/09/19 Rosuvastatin Calcium (CRESTOR) 10 Mg Tab, 10 MG PO DAILY THERAPEUTICALLY SUBSTITUTED WITH SIMVASTATIN 40MG 11/09/19 Trazodone Hcl (TRAZODONE HCL) 50 Mg Tablet, 50 MG PO HS, #30 TAB 07/21/16 Fluoxetine Hcl (PROZAC) 20 Mg Capsule, 40 MG PO DAILY, #30 TAB 07/21/16 ESPERANZA MICHELLE MD Jan 27, 2020 12:25
[2020-01-27 12:53] LABS: BASOPHILS % 0.3 % (0.0-1.0); HEMOGLOBIN 10.8 g/dL (12.0-16.0); LYMPHOCYTES # (AUTO) 0.5 (1.0-3.2); LYMPHOCYTES % 14.3 % (18.0-39.1); MEAN CORPUSCULAR HEMOGLOBIN 29.9 pg (28-32); MEAN CORPUSCULAR HGB CONC 32.7 g/dL (31-35); MEAN CORPUSCULAR VOLUME 91.4 fL (81-99); MONOCYTES # (AUTO) 0.4 (0.2-0.8); MONOCYTES % 13.1 % (4.4-11.3); NEUTROPHILS # (AUTO) 2.3 (2.1-6.9); PLATELET COUNT 191 x10e3/uL (140-360); RED BLOOD COUNT 3.61 x10e6/uL (3.6-5.1)
[2020-01-27 13:12] LABS: ALBUMIN/GLOBULIN RATIO 1.8 (0.8-2.0); ANION GAP 15.3 mmol/L (8-16); CALCIUM 8.3 mg/dL (8.4-10.2); CREATININE, SERUM 1.59 mg/dL (0.57-1.11); POTASSIUM 4.3 mmol/L (3.5-5.1)
[2020-01-27 13:16] LABS: CLARITY,URINE CLEAR (CLEAR); COLOR,URINE YELLOW (YELLOW); LEUKOCYTE ESTERASE ,URINE NEGATIVE (NEGATIVE); NITRITE,URINE NEGATIVE (NEGATIVE); PROTEIN,URINE DIPSTICK 2+ (NEGATIVE)
[2020-01-27 13:17] LABS: BILIRUBIN,URINE NEGATIVE (NEGATIVE); KETONES,URINE NEGATIVE (NEGATIVE); URINE UROBILINOGEN 1 mg/dL (0.2 - 1)
--- OUTSIDE RECORDS SUMMARY | 2020-01-27 13:27 | XMS REPORT | Continuity of Care Document ---
Author Author [facility] t Organization [facility] Address [address] [place] [address] Phone Unavailable Care Team Providers Care [facility] Cashier Name Role Phone SYLVESTER JESSICA PCP Higinio KABA Attphys Unavailable KAYLIN JEONG Attphys Unavailable Gerardo Jessica Attphys Lizbeth Jessica Attphys KAYLIN JEONG Admphys Unavailable Gerardo Jessica Admphys Payers Payer Name Policy Type Policy Number Effective Date Expiration Date Maciej Mohan [facility] [place] [id number] 2019 00:00:00 [facility] Cdc Review Covid19 [id number] [facility] Problems Condition Name Condition Details Condition Category Status Onset Date Resolution Date Last Treatment Date Treating Clinician Comments Source DX: [id number] AND COLLAPSE D X: [id number]=BKOMLHG AND COLLAPSE Active 02/21/2018 [facility] Active 2018-02-21 00:0 0:00 2018-02-24 13:19:00 [facility] 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 us 2 (SARS-CoV-2) Problem Active [facility] Dehydration Problem Active [facility] Renal insufficiency Problem Active [facility] Pain in right foot Pain in right foot 11/23/2018 [facility]23 [facility] Other intervertebral disc degeneration, lumbar region Other intervertebral disc degeneration, lumbar region 11/23/2018 OPID [facility] Problem 2018-11-23 11:30:35 Sergio Booker Other specified symptoms and signs invol ving the circulatory and respiratory systems Other specified symptoms and signs involving the circulatory and respiratory systems 09/13/2018 [facility] Problem 2018-09-13 13:08:36 Maria Isabel Booker Occlusion and stenosis of bilateral carotid arteries Occlusion and stenosis of bilateral carotid arteries 09/13/2018 [facility] Problem 2018-09-13 13:08:36 Maria Isabel Booker Low back pain Low back pain 05/10/2018 11/23/2018 JIMMY Gonzalez Problem 2018-05-10 05:34:11 2018-11-23 11:30:35 2018-11-23 11:30:35 [facility] Jhony Syncope and collapse Sync ope and collapse 02/28/2018 09/13/2018 [facility] Problem 2018-02-28 03:24:17 2018-09-13 13:0 8:36 2018-09-13 13:08:36 Maria Isabel Booker Allergies, Adverse Reactions, Alerts Allergy Name Allergy Type Status Severity Reaction(s) Onset Date Inacti ve Date Treating Clinician Comments Source Morphine Allergy to substance Active Mild ITCHES 2009-07-11 00:00:00 [facility] No Known Medication Allergies No Known Medication Allergies Active [facility] Social History Social Habit Start Date Stop Date Quantity Comments Source Social History 2018-02-25 04:59:00 2018-02-25 04:59:00 Maria Isabel Booker Sex Assigned At 1940 00:00:00 1940 00:00:00 Female [facility] Medications Ordered Medication Name Filled Medication Name Start Date Stop Da te Current Medication? Ordering Clinician Indication Dosage Frequency Signature (SIG) Comments Components Source Bupropion Hcl Bupropion Hcl Yes Daily [facility] Fluoxetine Hcl (Prozac) 20 Mg CAPSULE Fluoxetine Hcl (Prozac) 20 Mg CAPSULE Yes 40 Daily [facility] Memantine Hcl (Namenda) 10 Mg TABLET Memantine Hcl (Namenda) 10 Mg TABLET Yes 10 Twice A Day [facility] Rosuvastatin Calcium (Crestor) 10 Mg TAB Rosuvastatin Calcium (Crestor) 10 Mg TAB Yes 10 Daily [facility] Trazodone Hcl Trazodone Hcl Yes 50 Bedtime [facility] Baclofen Baclofen 2019-11-09 00:00:00 No 5 Twice A Day [facility] Fenofibrate (Tricor) 145 Mg TAB Fenofibrate (Tricor) 145 Mg TAB 2019-11-09 00:00:00 No 160 Use As Directed [facility] Fenofibrate Nanocrystallized (Fenofibrate) 145 Mg TABL ET Fenofibrate Nanocrystallized (Fenofibrate) 145 Mg TABLET 2019-11-09 00:00:00 No [facility] Naproxen Naproxen 2019-11-09 00:00:00 No 500 Twice A Day [facility] Valsartan/Hydrochlorothiazide (Diovan Hct 80-12.5 Mg T ablet) 1 Each TABLET Valsartan/Hydrochlorothiazide (Diovan Hct 80-12.5 Mg Tablet) 1 Each TABLET 2019-11-09 00:00:00 No 1 Daily [facility] Vital Signs Vital Name Observation Time Observation Value Comments Source Body Temperature 2019-11-13 16:00:00 98.1 [degF] [facility] Body Temperature 2019-11-13 12:00:00 97.7 [degF] [facility] Weight 2019-11-12 14:52:00 129.25 [lb_av] [facility] BMI (Body Mass Index) 2019-11-12 14:52:00 23.6 kg/m2 [facility] Procedures Procedure Date / Time Performed Performing Clinician [facility] e Computed tomography of brain without radiopaque contrast 2019-12 00:00:00 [facility] REMOVE SPINE LAMINA 1 LMBR 2019-11-12 00:00:00 C HI [facility] REMOVE SPINAL LAMINA ADD-ON 2019-11-12 00:00:00 [facility] X-ray of chest, two views 2019-11-09 00:00:00 MOHAN Link [facility] Plan of Care Planned Activity Planned Date Details Comments Source Instructions COVID-19: 08/10/2019 [facility] Encounters Start Date/Time End Date/Time Encounter Type Admission Type Attendi [facility] Care Department Encounter ID Source 2020-01-25 12:31:00 2020-01-25 19:19:00 Departed Emergency Room 1 LENA KABA [facility] [id number] [facility] 2019-11-12 09:55:00 2019-11-13 16:45:00 Discharged Inpatient (obs) 3 KAYLIN JEONG [facility] [id number] CH I [facility] 2018-05-05 14:32:00 2018-05-05 23:59:00 Outpatient Sylvester Jessica [facility] [id number] 2018-02-24 13:10:00 2018-02-24 23:59:00 [id number] 2014-09-27 13:06:00 2014-09-27 23:59:00 Outpatient Higinio Jessica [place] [id number] Results Test Description Test Time Test Comments Results Result Comments Source CHEST SINGLE (PORTABLE) 2020-01-25 13:33:00 [facility] [address] [address] Patient Name: ROQUE CORRAL MR #: [id number] : 1940 Age/Sex: 79/F Req #: [id number] Adm Physician: Ordered by: LENA KABA MD Report #: [id number] Location: ER Room/Bed: Procedure: [id number] DX/CHEST SINGLE (PORTABLE) Exam Date: 01/25/20 Exam Time: 1315 REPORT STATUS: Signed TECHNIQUE: Frontal view of the chest. INDICATION: Y NO APPETITE DUE TO LOSS OF TASTE, ? COVID [id number] COMPARISON: 11/09/2019 DISCUSSION: Limited evaluation due to portable technique. Lines and hardware: None Heart and mediastinum: Stable. Lungs and pleura: No focal airspace consolidation. No pleural effusion. No pneumothorax. Soft tissues and bones: No acute abnormality. IMPRESSION: Negative for acute intrathoracic process. Signed by: Dhaval Espinosa MD on 01/25/2020 1:34 PM Dictated By: DHAVAL ESPINOSA MD 1334 Transcribed By: JON on 01/25/20 1334 COPY TO: LENA KABA MD CT BRAIN WO 2020-01-25 13:27:[address] [address] Patient Name: ROQUE CORRAL MR #: [id number] : 1940 Age/Sex: 79/F Req #: [id number] Adm Physician: Ordered by: LENA KABA MD Report #: [id number] Location: ER Room/Bed: Procedure: [id number] CT/CT BRAIN WO Exam Date: 01/25/20 Exam [...] microvascular ischemic changes. Signed by: Dr. Heavenly Downey M.D. on 01/25/2020 1:30 PM Dictated By: HEAVENLY DOWNEY MD 1330 Transcribed By: JON on 01/25/20 1330 COPY TO: LENA KABA MD Blood leukocytes automated count (number/volume) 2020-01-25 12:58:00 Test Item White Blood Count (test code = 6690-2) 3.13 4.8-10.8 [facility] count (number/volume)2020-01-25 12:58:00* Test Item Value Reference Range Interpretation Comments Red Blood Count (test code = 789-8) 3.84 3.6-5.1 [facility] hemoglobin measurement (moles/volume)2020-01-25 12:58:00* Test Item Value Reference Range Interpretation Comments Hemoglobin (test code = 26560-4) 11.3 12.0-16.0 [facility] blood hematocrit (volume fraction)2020-01-25 12:58:00* Test Item Value Reference Range Interpretation Comments Hematocrit (test code = 4544-3) 35.5 34.2-44.1 [facility] erythrocyte mean corpuscular vrlruo3985-47-33 12:58:00* Test Item Value Reference Range Interpretation Comments Mean Corpuscular Volume (test code = 787-2) 92.4 81-99 [facility] erythrocyte mean corpuscular hemoglobin (mass per erythrocyte)2020-01-25 12:58:00* Test Item Value Reference Range Interpretation Comments Mean Corpuscular Hemoglobin (test code = 785-6) 29.4 28-32 [facility] erythrocyte mean corpuscular hemoglobin concentration measurement (mass/volume)2020-01-25 12:58:00* Test Item Value Reference Range Interpretation Comments Mean Corpuscular Hemoglobin Concent (test code = 786-4) 31.8 31-35 [facility] HeightsRDW BlaRe-Lwr2347-72-31 12:58:00* Test Item Value Reference Range Interpretation Comments Red Cell Distribution Width (test code = 50899-1) 12.1 11.7 -14.4 [facility] blood platelet count (count/volume)2020-01-25 12:58:00* Test Item Value Reference Range Interpretation Comments Platelet Count (test code = 777-3) 207 140-360 [facility] blood segmented neutrophil count as percentage of total gugtvnmvlw6374-22-66 12:58:00* Test Item Value Reference Range Interpretation Comments Neutrophils (%) (Auto) (test code = 92243-7) 78.3 38.7-80.0 [facility] blood lymphocyte count as percentage ot total qioxpuneaq7220-87-61 12:58:00* Test Item Value Reference Range Interpretation Comments Lymphocytes (%) (Auto) (test code = 736-9) 10.5 18.0-39.1 [facility] blood monocyte count as percentage of total wlsjtxzsid4810-52-60 12:58:00* Test Item Value Reference Range Interpretation Comments Monocytes (%) (Auto) (test code = 5905-5) 10.9 4.4-11.3 [facility] blood eosinophil count as percentage of total xepsnyesqd7993-10-06 12:58:00* Test Item Value Reference Range Interpretation Comments Eosinophils (%) (Auto) (test code = 713-8) 0.0 0.0-6.0 [facility] blood basophil count as percentage of total ucgxegxfhi2676-50-18 12:58:00* Test Item Value Reference Range Interpretation Comments Basophils (%) (Auto) (test code = 706-2) 0.0 0.0-1.0 [facility] HeightsFluoroscopic procedure less than one hour qlwrjhbd9648-54-10 12:58:00* Test Item Value Reference Range Interpretation Comments IM GRANULOCYTES % (test code = IM GRANULOCYTES %) 0.3 0.0- 1.0 [facility] blood neutrophil count 2020-01-25 12:58:00* Test Item Value Reference Range Interpretation Comments Neutrophils # (Auto) (test code = 751-8) 2.5 2.1-6.9 [facility] [place] lymphocytes count (number/volume) 2020-01-25 12:58:00* Test Item Value Reference Range Interpretation Comments Lymphocytes # (Auto) (test code = 49208-2) 0.3 1.0-3.2 [facility] monocytes automated count (number/volume)2020-01-25 12:58:00* Test Item Value Reference Range Interpretation Comments Monocytes # (Auto) (test code = 742-7) 0.3 0.2-0.8 [facility] blood eosinophil count 2020-01-25 12:58:00* Test Item Value Reference Range Interpretation Comments Eosinophils # (Auto) (test code = 711-2) 0.0 0.0-0.4 [facility] blood basophil count (count/volume)2020-01-25 12:58:00* Test Item Value Reference Range Interpretation Comments Basophils # (Auto) (test code = 704-7) 0.0 0.0-0.1 [facility] HeightsFluoroscopic procedure less than one hour hqkjkvuv0219-60-38 12:58:00* Test Item Value Reference Range Interpretation Comments Absolute Immature Granulocyte (auto (jennifer t code = Absolute Immature Granulocyte (auto) 0.01 0-0.1 [facility] HeightsProthrombin time (PT) in platelet poor plasma by coagulation odpor4139-91-19 12:58:00* Test Item Value Reference Range Interpretation Comments Prothrombin Time (test code = 5902-2) 12.9 11.9-14.5 [facility]INR in Platelet poor plasma by Coagulation qwahu4311-18-26 12:58:00* Test Item Value Reference Range Interpretation Comments Prothromb Time International Ratio (test code = 6301-6) 0.93 Oral Anticoagulant Therapy INR Values:1. Low Intensity Therapy 1.5 - 2.02 . Moderate Intensity Therapy 2.0 - 3.03. High Intensity Therapy(1) 2.5 - 3. 54. High Intensity Therapy(2) 3.0 - 4.05. Panic Value INR > 5.0 [facility] HeightsActivated partial thromboplastin time (aPTT) in platelet poor plasma by coagulation mgllx0790-84-43 12:58:00* Test Item Value Reference Range Interpretation Comments Activated Partial Thromboplast Time (test code = 09848-1) 25.7 23.8-35.5 [facility] sodium [facility] (moles/volume)2020-01-25 12:58:00* Test Item Value Reference Range Interpretation Comments Sodium Level (test code = 2951-2) 134 136-145 [facility] potassium measurement (moles/volume)2020-01-25 12:58:00* Test Item Value Reference Range Interpretation Comments Potassium Level (test code = 2823-3) 4.1 3.5-5.1 [facility] chloride measurement (moles/volume)2020-01-25 12:58:00* Test Item Value Reference Range Interpretation Comments Chloride Level (test code = 2075-0) 103 98-107 [facility] carbon dioxide, total measurement (moles/volume)2020-01-25 12:58:00* Test Item Value Reference Range Interpretation Comments Carbon Dioxide Level (test code = 2028-9) 18 22-29 [facility] anion epj7949-27-00 12:58:00* Test Item Value Reference Range Interpretation Comments Anion Gap (test code = 27512-9) 17.1 8-16 [facility] urea nitrogen measurement (mass/volume)2020-01-25 12:58:00* Test Item Value Reference Range Interpretation Comments Blood Urea Nitrogen (test code = 3094-0) 17 7-26 [facility] creatinine measurement (mass/volume)2020-01-25 12:58:00* Test Item Value Reference Range Interpretation Comments Creatinine (test code = 2160-0) 1.79 0.57-1.11 [facility] urea nitrogen/creatinine mass gdbqn0048-77-85 12:58:00* Test Item Value Reference Range Interpretation Comments BUN/Creatinine Ratio (test code = 3097-3) 9 6-25 [facility]Estimated glomerular filtration rate (GFR) mdrkhzpzhknvi8804-73-08 12:58:00* Test Item Value Reference Range Interpretation Comments Estimat Glomerular Filtration Rate (test code = 618944506) 27 >60 Ranges were taken from the National Kidney Disease Education Program and the [facility] Kidney Foundation literature.Reference ranges:60 or greater: Suhryl42-48 ( for 3 consecutive months): Chronic kidney disease 15 or less: Kidney failureSeton Medical Center Harker HeightsGlucose awqmitjibly2535-77-05 12:58:00* Test Item Value Reference Range Interpretation Comments Glucose Level (test code = OVL1232) 100 74-118 [facility] calcium measurement (mass/volume)2020-01-25 12:58:00* Test Item Value Reference Range Interpretation Comments Calcium Level (test code = 23467-4) 8.6 8.4-10.2 [facility] magnesium measurement (mass/volume)2020-01-25 12:58:00* Test Item Value Reference Range Interpretation Comments Magnesium Level (test code = 82466-3) 2.0 1.3-2.1 [facility] total bilirubin measurement (mass/volume)2020-01-25 12:58:00* Test Item Value Reference Range Interpretation Comments Total Bilirubin (test code = 1975-2) 0.4 0.2-1.2 [facility] HeightsFluoroscopic procedure less than one hour etwssyjz5670-00-57 12:58:00* Test Item Value Reference Range Interpretation Comments Aspartate Amino Transf (AST/SGOT) (test code = Aspartate Amino Transf (AST/SGOT)) 34 5-34 [facility] alanine aminotransferase measurement (enzymatic activity/volume)2020-01-25 12:58:00* Test Item Value Reference Range Interpretation Comments Alanine Aminotransferase (ALT/SGPT) (test code = 1742-6) 38 0-55 [facility] protein measurement (mass/volume)2020-01-25 12:58:00* Test Item Value Reference Range Interpretation Comments Total Protein (test code = 2885-2) 6.5 6.5-8.1 [facility] albumin measurement (mass/volume)2020-01-25 12:58:00* Test Item Value Reference Range Interpretation Comments Albumin (test code = 1751-7) 3.6 3.5-5.0 [facility]asma globulin measurement (mass/volume) 2020-01-25 12:58:00* Test Item Value Reference Range Interpretation Comments Globulin (test code = 64624-8) 2.9 2.3-3.5 [facility] albumin/globulin mass iotiv4693-95-82 12:58:00* Test Item Value Reference Range Interpretation Comments Albumin/Globulin Ratio (test code = 1759-0) 1.2 0.8-2.0 [facility] alkaline phosphatase measurement (enzymatic activity/volume)2020-01-25 12:58:00* Test Item Value Reference Range Interpretation Comments Alkaline Phosphatase (test code = 6768-6) 96 40-150 [facility] HeightsBNP Mmh-rMnz9786-89-31 12:58:00* Test Item Value Reference Range Interpretation Comments B-Type Natriuretic Peptide (test code = 25774-3) 18.6 0-100 [facility] creatine kinase measurement (enzymatic activity/volume)2020-01-25 12:58:00* Test Item Value Reference Range Interpretation Comments Creatine Kinase (test code = 2157-6) 25 29-168 [facility] creatine kinase MB measurement (mass/volume)2020-01-25 12:58:00* Test Item Value Reference Range Interpretation Comments Creatine Kinase MB (test code = 31079-6) 0.80 0-5.0 [facility] HeightsTroponin I measurement by highly sensitive enzyme txhdqhkmkcx4803-54-41 12:58:00* Test Item Value Reference Range Interpretation Comments Troponin I (test code = 81187-4) 0.014 0-0.300 [facility] plasma thyrotropin measurement by detection limit <= 0.005 miu/l (units/volume)2020-01-25 12:58:00* Test Item Value Reference Range Interpretation Comments Thyroid Stimulating Hormone (TSH) (test code = 33681-0) 0.902 0.350-4.940 [facility] HeightsFluoroscopic procedure less than one hour hvizvzsu6709-59-97 12:58:00* Test Item Value Reference Range Interpretation Comments Coronavirus (PCR) (test code = Coronavirus (PCR)) DETECTED NOTD ETECTED SARS-COV2/RT-PCR CEPHEIDResults are for the detection of SARS-COV-2 RNA. The SUREKHA S-COV-2 RNA is generally detectable in nasopharyngeal swab specimens during the acute phase of infection. Positive results are indicitive of active infection wi SARS-COV-2; clinical correlation with patient history and other diagnostic in formation is necessary to determine patient infection status. Positive results d o not rule out bacterial infection or co-infection with other viruses. The agent detected may not be the definite cause of the disease.The limit of detection fo r this assay is 250 copies/mLThe SARS-CoV-2 test is a rapid, real-time RT-PCR st intended for the qualitative detection of nucleic acid from SARS-CoV-2 in starla opharyngeal swab specimen collected from individuals suspected of COVID-19 by eir healthcare provider. This test has not been Food and Drug Administration (FD A) cleared or approved and has been authorized by FDA under an Emergency Use Aut horization (EUA). This EUA will be effective until the declaration that circumst ances exist justifying the authorization of the emergency use of in vitro diagno stic test for detection and or diagnosis of COVID-19 is terminated under section 564(b) of the Act, or the the EUA is revoked under 564(g) of the ACT.Results ca lled to Dr Isreal Kaba at 1427 on 01/25/20 by Amalia Peralta. RB [place].[facility] leukocytes automated count (number/volume) 2019-11-09 16:34:00* Test Item Value Reference Range Interpretation Comments White Blood Count (test code = 6690-2) 6.57 4.8-10.8 [facility] erythrocytes automated count (number/volume)2019-11-09 16:34:00* Test Item Value Reference Range Interpretation Comments Red Blood Count (test code = 789-8) 3.55 3.6-5.1 [facility] hemoglobin measurement (moles/volume)2019-11-09 16:34:00* Test Item Value Reference Range Interpretation Comments Hemoglobin (test code = 41509-2) 10.9 12.0-16.0 [facility] HeightsAutomated blood hematocrit (volume fraction)2019-11-09 16:34:00* Test Item Value Reference Range Interpretation Comments Hematocrit (test code = 4544-3) 33.7 34.2-44.1 [facility] HeightsAutomated erythrocyte mean corpuscular mgionp5172-50-01 16:34:00* Test Item Value Reference Range Interpretation Comments Mean Corpuscular Volume (test code = 787-2) 94.9 81-99 [facility] HeightsAutomated erythrocyte mean corpuscular hemoglobin (mass per erythrocyte)2019-11-09 16:34:00* Test Item Value Reference Range Interpretation Comments Mean Corpuscular Hemoglobin (test code = 785-6) 30.7 28-32 [facility] HeightsAutomated erythrocyte mean corpuscular hemoglobin concentration measurement (mass/volume)2019-11-09 16:34:00* Test Item Value Reference Range Interpretation Comments Mean Corpuscular Hemoglobin Concent (test code = 786-4) 32.3 31-35 [facility] HeightsRDW OfxYi-Gvp8553-13-15 16:34:00* Test Item Value Reference Range Interpretation Comments Red Cell Distribution Width (test code = 19692-5) 12.0 11.7 -14.4 [facility]Automated blood platelet count (count/volume)2019-11-09 16:34:00* Test Item Value Reference Range Interpretation Comments Platelet Count (test code = 777-3) 271 140-360 [facility] HeightsAutomated blood segmented neutrophil count as percentage of total jdweahosey8876-16-29 16:34:00* Test Item Value Reference Range Interpretation Comments Neutrophils (%) (Auto) (test code = 84557-3) 65.4 38.7-80.0 [facility] as percentage ot total bsgxtcjwuk0818-79-52 16:34:00* Test Item Value Reference Range Interpretation Comments Lymphocytes (%) (Auto) (test code = 736-9) 24.0 18.0-39.1 [facility] HeightsAutom[facility] blood monocyte count as percentage of total fnyfhhmkzh3286-47-27 16:34:00* Test Item Value Reference Range Interpretation Comments Monocytes (%) (Auto) (test code = 5905-5) 6.7 4.4-11.3 [facility]Autom[facility] blood eosinophil count as percentage of total iikwkrfvxc8078-32-56 16:34:00* Test Item Value Reference Range Interpretation Comments Eosinophils (%) (Auto) (test code = 713-8) 3.2 0.0-6.0 [facility]Autom[facility] blood basophil count as percentage of total vopcyycwkk2134-79-79 16:34:00* Test Item Value Reference Range Interpretation Comments Basophils (%) (Auto) (test code = 706-2) 0.5 0.0-1.0 [facility] HeightsFluoroscopic procedure less than one hour bprmiefy8503-65-21 16:34:00* Test Item Value Reference Range Interpretation Comments IM GRANULOCYTES % (test code = IM GRANULOCYTES %) 0.2 0.0- 1.0 [facility]Autom[facility] blood neutrophil count 2019-11-09 16:34:00* Test Item Value Reference Range Interpretation Comments Neutrophils # (Auto) (test code = 751-8) 4.3 2.1-6.9 [facility] [facility] (number/volume) 2019-11-09 16:34:00* Test Item Value Reference Range Interpretation Comments Lymphocytes # (Auto) (test code = 37653-9) 1.6 1.0-3.2 [facility] monocytes automated count (number/volume)2019-11-09 16:34:00* Test Item Value Reference Range Interpretation Comments Monocytes # (Auto) (test code = 742-7) 0.4 0.2-0.8 [facility] eosinophil count 2019-11-09 16:34:00* Test Item Value Reference Range Interpretation Comments Eosinophils # (Auto) (test code = 711-2) 0.2 0.0-0.4 [facility] basophil count (count/volume)2019-11-09 16:34:00* Test Item Value Reference Range Interpretation Comments Basophils # (Auto) (test code = 704-7) 0.0 0.0-0.1 [facility] HeightsFluoroscopic procedure less than one hour [id number] 16:34:00* Test Item Value Reference Range Interpretation Comments Absolute Immature Granulocyte (auto (jennifer t code = Absolute Immature Granulocyte (auto) 0.01 0-0.1 [facility]Prothrombin time (PT) in platelet poor plasma by coagulation [id number] 16:34:00* Test Item Value Reference Range Interpretation Comments Prothrombin Time (test code = 5902-2) 13.5 11.9-14.5 [facility] in Platelet poor plasma by Coagulation plyhj5202-52-80 16:34:00* Test Item Value Reference Range Interpretation Comments Prothromb Time International Ratio (test code = 6301-6) 0.97 Oral Anticoagulant Therapy INR Values:1. Low Intensity Therapy 1.5 - 2.02 . Moderate Intensity Therapy 2.0 - 3.03. High Intensity Therapy(1) 2.5 - 3. 54. High Intensity Therapy(2) 3.0 - 4.05. Panic Value INR > 5.0 [facility]Activated partial thromboplastin time (aPTT) in platelet poor plasma by coagulation efqhb5588-33-91 16:34:00* Test Item Value Reference Range Interpretation Comments Activated Partial Thromboplast Time (test code = 87161-8) 26.1 23.8-35.5 [facility] sodium [facility] (moles/volume)2019-11-09 16:34:00* Test Item Value Reference Range Interpretation Comments Sodium Level (test code = 2951-2) 140 136-145 [facility] potassium measurement (moles/volume)2019-11-09 16:34:00* Test Item Value Reference Range Interpretation Comments Potassium Level (test code = 2823-3) 4.5 3.5-5.1 [facility] chloride measurement (moles/volume)2019-11-09 16:34:00* Test Item Value Reference Range Interpretation Comments Chloride Level (test code = 2075-0) 106 98-107 [facility] carbon dioxide, total measurement (moles/volume)2019-11-09 16:34:00* Test Item Value Reference Range Interpretation Comments Carbon Dioxide Level (test code = 2028-9) 26 22-29 [facility] anion [id number] 16:34:00* Test Item Value Reference Range Interpretation Comments Anion Gap (test code = 13491-8) 12.5 8-16 [facility] urea nitrogen measurement (mass/volume)2019-11-09 16:34:00* Test Item Value Reference Range Interpretation Comments Blood Urea Nitrogen (test code = 3094-0) 20 7-26 [facility] creatinine measurement (mass/volume)2019-11-09 16:34:00* Test Item Value Reference Range Interpretation Comments Creatinine (test code = 2160-0) 1.72 0.57-1.11 [facility] urea nitrogen/creatinine mass fljhc7928-08-07 16:34:00* Test Item Value Reference Range Interpretation Comments BUN/Creatinine Ratio (test code = 3097-3) 12 6-25 [facility]Estimated glomerular filtration rate (GFR) qcfuozqrfomfa6948-11-46 16:34:00* Test Item Value Reference Range Interpretation Comments Estimat Glomerular Filtration Rate (test code = 606899590) 29 >60 Ranges were taken from the National Kidney Disease Education Program and the [facility] Foundation literature.Reference ranges:60 or greater: Vplyod37-71 ( for 3 consecutive months): Chronic kidney disease 15 or less: Kidney failureCHI [facility] DentonGlucose gfgeezhgppb1470-44-07 16:34:00* Test Item Value Reference Range Interpretation Comments Glucose Level (test code = UHI0504) 92 74-118 [facility] calcium measurement (mass/volume)2019-11-09 16:34:00* Test Item Value Reference Range Interpretation Comments Calcium Level (test code = 09717-6) 9.3 8.4-10.2 [facility] 2 AEYQJ1930-84-01 16:02:00 [facility] [address] [address] Patient Name: ROQUE CORRAL MR #: [id number] : 1940 Age/Sex: 79/F Req #: [id number] Adm Physician: KAYLIN JEONG MD Ordered by: KAYLIN JEONG MD Report #: [id number] Location: MED/SURG Room/Bed: [facility] Procedure: [id number] DX/CHEST 2 EWS Exam Date: 11/09/19 Exam [...] MD Fluoroscopic procedure less than one hour nxoxhqsr8202-07-52 15:53:00* Test Item Value Reference Range Interpretation [...] complexity tests.Testing performed by [facility] [id number] [place], [place] [phone] Director: Danial Casillas M.D.CLCARLOS # [id number] [facility]
--- OUTSIDE RECORDS SUMMARY | 2020-01-27 13:27 | XMS REPORT | Continuity of Care Document ---
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 Role Phone [employer] Unavailable Un available Problems Problem Status Onset Date Classification Date Reported Comments Source Low back pain 05/10/2018 11/23/2018 JIMMY Gonzalez Syncope and collapse 02/28/2018 09/13/2018 [facility] DX: [id number] AND COLLAPSE A ctive 02/21/2018 [facility] Pain in right foot 11/23/2018 JIMMY Gonzalez Other intervertebral disc degeneration, lumbar region 11/23/2018 JIMMY Gonzalez Other specified symptoms and signs invol ving the circulatory and respiratory systems 09/13/2018 [facility] Occlusion and stenosis of bilateral carotid arteries 09/13/2018 [facility] Medications No Data Provided for This Section Allergies, Adverse Reactions, Alerts Substance Category Reaction Severity Reaction type Status Date Reported Comments Source No Known Medication Allergies Assertion Drug aller gy [facility] Immunizations Immunization Date Given Site Status Last Updated Comments Source pneumococcal 23-valent vaccine 07/24/2006 Right deltoid completed Jean JIMMY Gonzalez,[facility] Results No Data Provided for This [...] : 1940; Age: 77 years Female MR: [id number] Study: Carotid artery Doppler bilat US 02/24/2018 [...] occlusion High, low, or Variable undetectable SL: [id number] 02/24/2018 [facility] Consultation Notes No Data Provided for This Section Discharge Summaries No Data Provided for This Section History and Physicals No Data Provided for This Section Vital Signs No Data Provided for This Section Encounters Location Location Details Encounter Type Encounter Number Reason For Visit Attending Provider ADM Date DC Date Status Source [facility] [id number] Uday Jaskaran 09/27/2014 09/28/2014 [facility] [id number] Uday Jessica 02/24/2018 02/25/2018 [id number]2018 [facility] [place] Procedures No Data Provided for This Section Assessment and Plan No Data Provided for This Section Plan of Care No Data Provided for This Section Social History Social History Date Source No data available for this section 05/06/2018 [facility] [place] No data available for this section 02/25/2018 [facility] Family History No Data Provided for This Section Advance Directives No Data Provided for This Section Functional Status No Data Provided for This Section
[2020-01-27 13:30] LABS: BACTERIA,URINE FEW /HPF; EPITHELIAL CELLS,URINE RARE /LPF; WBC,URINE (MAN) 0-5 /HPF (0-5)
[2020-01-27 13:31] LABS: AMORPHOUS SEDIMENT,URINE FEW (FEW)
--- NOTE | 2020-01-27 13:34 | Diagnostic Imaging Report ---
Examination: CT head without contrast Clinical Indication: Fall with head injury; weakness. Technique: Transaxial noncontrast images from the skull base through the vertex were obtained. Sagittal and coronal reformatted images were done. Dose modulation, iterative reconstruction, and/or weight based adjustment of the mA/kV was utilized to reduce the radiation dose to as low as reasonably achievable. Comparison: Head CT performed January 25, 2020. Findings: Scalp: No abnormalities. Bones: Intact. No fractures. No blastic or lytic lesions. Brain sulci: Generalized volume for patient's age. Ventricles: No hydrocephalus. Extra-axial space: No abnormalities. Parenchyma: There are patchy areas of low-attenuation within subcortical and periventricular white matter, nonspecific, but could represent microvascular ischemic disease. No masses, hemorrhage, or acute or chronic cortical based vascular insults. Suprasellar region: No abnormalities. Craniocervical junction: The foramen magnum is patent. No Chiari one malformation. Impression: 1. No new or acute intracranial abnormality when compared to prior head CT performed January 25, 2020. 2. Unchanged chronic microvascular ischemic change and volume loss. Signed by: Dr. Melissa Akhtar M.D. on 01/27/2020 1:31 PM
--- NOTE | 2020-01-27 13:44 | Diagnostic Imaging Report ---
TECHNIQUE: Frontal view of the chest. INDICATION: ^Y ^Weakness ^[id number] ^1310 COMPARISON: 01/25/2020 DISCUSSION: Limited evaluation due to portable technique. Lines and hardware: Overlying EKG leads are noted. Partially visualized cervical fusion changes are noted. Heart and mediastinum: Stable. Lungs and pleura: No focal airspace consolidation. No pleural effusion. No pneumothorax. Soft tissues and bones: No acute abnormality. Linear external artifact is identified overlying the left proximal extremity. Stable moderate degenerative changes of the shoulder joints. IMPRESSION: Negative for acute intrathoracic process. Signed by: Brady Espinosa MD on 01/27/2020 1:41 PM
[2020-01-27] MEDS ORDERED: SODIUM CHLORIDE 0.9% 500ML 500 ML IV STA (13:50)
--- NOTE | 2020-01-27 15:24 | NUR ---
PT CALLED SON TO LET HIM KNOW THAT MD HAS STATED PT IS CLEARED FOR DC. PT STATED THAT HER SON STATES HE DOESN'T THINK SHE NEEDS TO COME HOME RIGHT NOW AND WANTS HER TO STAY IN HOSPITAL. INSTRUCTED PT TO CALL SON BACK TO LET HIM KNOW THAT THERE IS NO INDICATION TO STAY IN HOSPITAL AND HE NEEDS TO SPEAK WITH MD IF HE HAS FURTHER QUESTIONS.
--- NOTE | 2020-01-27 15:38 | NUR ---
SPOKE WITH PATIENT'S SON. 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 SON STATES HE THINKS HIS MOTHER NEEDS HOME HEALTH OR A HALF-WAY. EXPLAINED TO SON THAT HOME HEALTH OR DISCHARGING TO A HALF-WAY IS NOT SOMETHING WE CAN DO FROM THE ER AND THAT HE MAY NEED TO DISCUSS WITH HER INSURANCE AND SET SOMETHING UP FOR HER. SON STATES THAT HE WANTS PATIENT ADMITTED TO [facility] RIGHT NOW, SO HE CAN HAVE TIME TO FIGURE SOMETHING OUT. ESCALATED TO AND MD MICHELLE NOW TO SPEAK WITH SON TO DISCUSS THAT PT DOES NOT HAVE A MEDICAL NECESSITY FOR AN ADMISSION. ESCALATED AGAIN TO JUNITO WEINER.
--- NOTE | 2020-01-27 15:41 | NUR ---
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
--- NOTE | 2020-01-27 15:45 | NUR ---
PER HS, CM/SW INSTRUCTED MD TO ORDER HOME HEALTH EVAL/PT EVAL. WILL INFORM SON.
--- NOTE | 2020-01-27 16:09 | NUR ---
CM APPROACHED BY DESK REPORTER ASKING IF CM CAN SET HOME HEALTH UP FOR THIS PT TO BE DISCHARGED BACK HOME. THIS IS 2ND 911 CALL FROM PT IN PAST 48 HRS RECENT DIAGNOSIS OF COVID SPOKE WITH PT'S SON, NITHYA JETER [phone] HE STATES PT LIVES ALONE AND IS SO WEAK SHE CANNOT GO TO THE BATHROOM SHE CALLED 911 THIS MORNING AND WAS FOUND SOAKED IN URINE AND STOOL PT WAS FUNCTIONING MINIMALLY ON HER OWN PRIOR TO COVID, HAS BEEN INCONTINENT FOR PAST 2 YEARS BUT HAS BEEN ABLE TO MAKE IT TO THE BATHROOM TO CHANGE HER DIAPER UNSAFE TO DISCHARGE PT WILL BE ADMITTED OBSERVATION STATUS, P.T. EVAL TO ASSESS FUNCTIONAL STATUS WITH SNF EVAL EXPLAINED PLAN TO SON, NITHYA WHO IS VERY RELIEVED AND THANKFUL EXPLAINED CM RECOMMENDATIONS TO HOUSE SUP WHO WILL GET THOSE ORDERS FROM ER PHYSICIAN RIZWANA TO F/U IN AM
--- NOTE | 2020-01-27 16:17 | NUR ---
SPOKE WITH HS WHO STATES CM HAS ADVISED MD TO GO AHEAD AND ADMIT PT TO OBS FOR SOCIAL WORK. MD TO PLACE ORDERS FOR PT EVAL AND SNF EVAL. EXPLAINED TO PATIENT WHO IS AGREABLE TO PLAN AND INFORMED SON.
--- OUTSIDE RECORDS SUMMARY | 2020-01-27 16:40 | XMS REPORT | Continuity of Care Document ---
Author Author [facility] t Organization [facility] Address Formerly [facility] Jhony Samuel [address] [place] [address] Phone Unavailable Care Team Providers Care Civil Engineering Draftsperson Name Role Phone SYLVESTER JESSICA PCP Lizbeth Murray Attphys Unavailable Higinio KABA Attphys Unavailable KAYLIN JEONG Attphys Unavailable Gerardo Jessica Attphys Lizbeth Jessica Attphys KAYLIN JEONG Admphys Unavailable Gerardo Jessica Admphys Payers Payer Name Policy Type Policy Number Effective Date Expiration Date Maciej Mohan [facility] [id number] 2019 00:00:00 [facility] Cdc Review Covid19 [id number] [facility] Problems Condition Name Condition Details Condition Category Status Onset Date Resolution Date Last Treatment Date Treating Clinician Comments Source DX: [id number] AND COLLAPSE D X: [id number] AND COLLAPSE Active 02/21/2018 [facility] Active 2018-02-21 00:0 0:00 2018-02-24 13:19:00 [facility] Jhony 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 us 2 (SARS-CoV-2) Problem Active [facility] Dehydration Problem Active [facility] Renal insufficiency Problem Active [facility] Pain in right foot Pain in right foot 11/23/2018 EANLucy Carlos Problem 2018-11-23 11:30:35 Maria Isabel Booker Other intervertebral disc degeneration, lumbar region Other intervertebral disc degeneration, lumbar region 11/23/2018 JIMMY Gonzalez Problem 2018-11-23 11:30:35 Sergio Booker Other specified symptoms and signs invol ving the circulatory and respiratory systems Other specified symptoms and signs involving the circulatory and respiratory systems 09/13/2018 [facility] Problem 2018-09-13 13:08:36 Maria Isabel Booker Occlusion and stenosis of bilateral carotid arteries Occlusion and stenosis of bilateral carotid arteries 09/13/2018 [facility] Problem 2018-09-13 13:08:36 Maria Isabel Booker Low back pain Low back pain 05/10/2018 11/23/2018 VAISHALI Gonzalez Problem 2018-05-10 05:34:11 2018-11-23 11:30:35 2018-11-23 11:30:35 Maria Isabel Booker Syncope and collapse Sync ope and collapse 02/28/2018 09/13/2018 [facility] Problem 2018-02-28 03:24:17 2018-09-13 13:0 8:36 2018-09-13 13:08:36 Maria Isabel Booker Allergies, Adverse Reactions, Alerts Allergy Name Allergy Type Status Severity Reaction(s) Onset Date Inacti ve Date Treating Clinician Comments Source Morphine Allergy to substance Active Mild ITCHES 2009-07-11 00:00:00 [facility] No Known Medication Allergies No Known Medication Allergies Active Maria Isabel Booker Social History Social Habit Start Date Stop Date Quantity Comments Source Social History 2018-02-25 04:59:00 2018-02-25 04:59:00 Maria Isabel Booker Sex Assigned At 1940 00:00:00 1940 00:00:00 Female [facility] Medications Ordered Medication Name Filled Medication Name Start Date Stop Da te Current Medication? Ordering Clinician Indication Dosage Frequency Signature (SIG) Comments Components Source Bupropion Hcl Bupropion Hcl Yes Daily [facility] Fluoxetine Hcl (Prozac) 20 Mg CAPSULE Fluoxetine Hcl (Prozac) 20 Mg CAPSULE Yes 40 Daily [facility] Memantine Hcl (Namenda) 10 Mg TABLET Memantine Hcl (Namenda) 10 Mg TABLET Yes 10 Twice A Day [facility] Rosuvastatin Calcium (Crestor) 10 Mg TAB Rosuvastatin Calcium (Crestor) 10 Mg TAB Yes 10 Daily [facility] Trazodone Hcl Trazodone Hcl Yes 50 Bedtime [facility] Baclofen Baclofen 2019-11-09 00:00:00 No 5 Twice A Day [facility] Fenofibrate (Tricor) 145 Mg TAB Fenofibrate (Tricor) 145 Mg TAB 2019-11-09 00:00:00 No 160 Use As Directed [facility] Fenofibrate Nanocrystallized (Fenofibrate) 145 Mg TABL ET Fenofibrate Nanocrystallized (Fenofibrate) 145 Mg TABLET 2019-11-09 00:00:00 No [facility] Naproxen 2019-11-09 00:00:00 No 500 Twice A Day [facility] Valsartan/Hydrochlorothiazide (Diovan Hct 80-12.5 Mg T ablet) 1 Each TABLET Valsartan/Hydrochlorothiazide (Diovan Hct 80-12.5 Mg Tablet) 1 Each TABLET 2019-11-09 00:00:00 No 1 Daily [facility] Vital Signs Vital Name Observation Time Observation Value Comments Source Body Temperature 2019-11-13 16:00:00 98.1 [degF] [facility] Body Temperature 2019-11-13 12:00:00 97.7 [degF] [facility] Weight 2019-11-12 14:52:00 129.25 [lb_av] [facility] BMI (Body Mass Index) 2019-11-12 14:52:00 23.6 kg/m2 [facility] Procedures Procedure Date / Time Performed Performing Clinician [facility] Computed tomography of brain without radiopaque contrast 2019-12 00:00:00 [facility] REMOVE SPINE LAMINA 1 LMBR 2019-11-12 00:00:00 [facility] REMOVE SPINAL LAMINA ADD-ON 2019-11-12 00:00:00 [facility] X-ray of chest, two views 2019-11-09 00:00:00 [facility] Plan of Care Planned Activity Planned Date Details Comments Source Instructions COVID-19: 08/10/2019 [facility] Encounters Start Date/Time End Date/Time Encounter Type Admission Type Att[facility] Care Department Encounter ID Source 2020-01-25 12:31:00 2020-01-25 19:19:00 Departed Emergency Room 1 LENA KABA [facility] [id number] [facility] 2019-11-12 09:55:00 2019-11-13 16:45:00 Discharged Inpatient (obs) 3 KAYLIN JEONG [facility] [id number] [facility] 2018-05-05 14:32:00 2018-05-05 23:59:00 Outpatient Sylvester Jessica HOIP MHHOIP [id number] 2018-02-24 13:10:00 2018-02-24 23:59:00 Outpatient Higinio Jessica SE SE [id number] 2014-09-27 13:06:00 2014-09-27 23:59:00 Outpatient Higinio Jessica IE IE [id number] Results Test Description Test Time Test Comments Results Result Comments Source CHEST SINGLE (PORTABLE) 2020-01-27 13:39:00 [facility] [address] [address] Patient Name: ROQUE CORRAL MR #: [id number] : 1940 Age/Sex: 79/F Req #: [id number] Adm Physician: Ordered by: Esperanza Murray MD Report #: [id number] Location: ER Room/Bed: Procedure: [id number] DX/CHEST SINGLE (PORTABLE) Exam Date: 01/27/20 Exam Time: 1310 REPORT STATUS: Signed TECHNIQUE: Frontal view of the chest. INDICATION: Y Weakness [id number] COMPARISON: 01/25/2020 DISCUSSION: Limited evaluation due to portable technique. Lines and hardware: Overlying EKG leads are noted. Partially visualized cervical fusion changes are noted. Heart and mediastinum: Stable. Lungs and pleura: No focal airspace consolidation. No pleural effusion. No pneumothorax. Soft tissues and bones: No acute abnormality. Linear external artifact is identified overlying the left proximal extremity. Stable moderate degenerative changes of the shoulder joints. IMPRESSION: Negative for acute intratho racic process. Signed by: Dhaval Espinosa MD on 01/27/2020 1:41 PM Dictated By: DHAVAL ESPINOSA MD 1341 Transcribed By: JON on 01/27/20 1341 COPY TO: ESPERANZA MURRAY MD CT BRAIN WO 2020-01-27 13:29:[address] [address] Patient Name: ROQUE CORRAL MR #: [id number] : 1940 Age/Sex: 79/F Req #: [id number] Adm Physician: Ordered by: Esperanza Murray MD Report #: [id number] Location: ER Room/Bed: Procedure: [id number] CT/CT BRAIN WO Exam Date: 01/27/20 Exam Time: 1250 REPORT STATUS: Signed Examination: CT head without contrast Clinical Indication: Fall with head injury; weakness. Technique: Transaxial noncontrast images from the skull base through the vertex were obtained. Sagittal and coronal reformatted images were done. Dose modulation, iterative reconstruction, and/or weight based adjustment of the mA/kV was utilized to reduce the radiation dose to as low as reasonably achievable. Comparison: Head CT performed January 25, 2020. Findings: Scalp: No abnormalities. Bones: Intact. No fractures. No blastic or lytic lesions. Brain sulci: Generalized volume for patient's age. Ventricles: No hydrocephalus. Extra-axial space: No abnormalities. Parenchyma: There are patchy areas of low-attenuation within subcortical and periventricular white matter, nonspecific, but could represent microvascular ischemic disease. No masses, hemorrhage, or acute or chronic cortical based vascular insults. Suprasellar region: No abnormalities. Craniocervical junction: The foramen magnum is patent. No Chiari one malformation. Impression: 1. No new or acute intracranial abnormality when compared to prior head CT performed January 25, 2020. 2. Unchanged chronic microvascular ischemic change and volume loss. Signed by: Dr. Beck Akhtar M.D. on 01/27/2020 1:31 PM Dictated By: BECK GONZALES MD 1331 Transcribed By: JON on 01/27/20 1331 COPY TO: ESPERANZA MURRAY MD CHEST SINGLE (PORTABLE) 2020-01-25 13:33:00 [address] [address] Patient Name: ROQUE CORRAL MR #: [id number] : 1940 Age/Sex: 79/F Req #: [id number] Adm Physician: Ordered by: LENA KABA MD Report #: [id number] Location: ER Room/Bed: Procedure: [id number] DX/CHEST SINGLE (PORTABLE) Exam Date: 01/25/20 Exam Time: 1315 REPORT STATUS: Signed TECHNIQUE: Frontal view of the chest. INDICATION: Y NO APPETITE DUE TO LOSS OF TASTE, ? COVID [id number] COMPARISON: 11/09/2019 DISCUSSION: Limited evaluation due to portable technique. Lines and hardware: None Heart and mediastinum: Stable. Lungs and pleura: No focal airspace consolidation. No pleural effusion. No pneumothorax. Soft tissues and bones: No acute abnormality. IMPRESSION: Negative for acute intrathoracic process. Signed by: Dhaval Espinosa MD on 01/25/2020 1:34 PM Dictated By: DHAVAL ESPINOSA MD 133 Transcribed By: JON on 01/25/20 133 COPY TO: LENA KABA MD CT BRAIN WO 2020-01-25 13:27:00 [address] [address] Patient Name: ROQUE CORRAL MR #: [id number] : 1940 Age/Sex: 79/F Req #: [id number] Adm Physician: Ordered by: LENA KABA MD Report #: [id number] Location: ER Room/Bed: Procedure: [id number] CT/CT BRAIN WO Exam Date: 01/25/20 Exam [...] 1:30 PM Dictated By: HEAVENLY DOWNEY MD 29 Transcribed By: JON on 01/25/20 1330 COPY TO: LENA KABA MD Blood leukocytes automated count (number/volume) 2020-01-25 12:58:00 Test Item White Blood Count (test code = 6690-2) 3.13 4.8-10.8 [facility] count (number/volume)2020-01-25 12:58:00* Test Item Value Reference Range Interpretation Comments Red Blood Count (test code = 789-8) 3.84 3.6-5.1 [facility] hemoglobin measurement (moles/volume)2020-01-25 12:58:00* Test Item Value Reference Range Interpretation Comments Hemoglobin (test code = 00848-4) 11.3 12.0-16.0 [facility] HospitalAutomated blood hematocrit (volume fraction)2020-01-25 12:58:00* Test Item Value Reference Range Interpretation Comments Hematocrit (test code = 4544-3) 35.5 34.2-44.1 [facility] HospitalAutomated erythrocyte mean corpuscular umqfvc3936-07-52 12:58:00* Test Item Value Reference Range Interpretation Comments Mean Corpuscular Volume (test code = 787-2) 92.4 81-99 [facility] HospitalAutomated erythrocyte mean corpuscular hemoglobin (mass per erythrocyte)2020-01-25 12:58:00* Test Item Value Reference Range Interpretation Comments Mean Corpuscular Hemoglobin (test code = 785-6) 29.4 28-32 [facility] HospitalAutomated erythrocyte mean corpuscular hemoglobin concentration measurement (mass/volume)2020-01-25 12:58:00* Test Item Value Reference Range Interpretation Comments Mean Corpuscular Hemoglobin Concent (test code = 786-4) 31.8 31-35 [facility] HospitalRDW AfiEy-Prx6283-15-31 12:58:00* Test Item Value Reference Range Interpretation Comments Red Cell Distribution Width (test code = 05832-9) 12.1 11.7 -14.4 [facility] HospitalAutomated blood platelet count (count/volume)2020-01-25 12:58:00* Test Item Value Reference Range Interpretation Comments Platelet Count (test code = 777-3) 207 140-360 [facility] HospitalAutomated blood segmented neutrophil count as percentage of total xqajnodvju2101-39-48 12:58:00* Test Item Value Reference Range Interpretation Comments Neutrophils (%) (Auto) (test code = 49530-0) 78.3 38.7-80.0 [facility] HospitalAutomated blood lymphocyte count as percentage ot total duxijltulw5695-96-93 12:58:00* Test Item Value Reference Range Interpretation Comments Lymphocytes (%) (Auto) (test code = 736-9) 10.5 18.0-39.1 [facility] HospitalAutomated blood monocyte count as percentage of total gkjapehgpv4954-22-37 12:58:00* Test Item Value Reference Range Interpretation Comments Monocytes (%) (Auto) (test code = 5905-5) 10.9 4.4-11.3 [facility] HospitalAutomated blood eosinophil count as percentage of total hcusyzloxl1776-45-83 12:58:00* Test Item Value Reference Range Interpretation Comments Eosinophils (%) (Auto) (test code = 713-8) 0.0 0.0-6.0 [facility] HospitalAutomated blood basophil count as percentage of total ujjmjvxseu3609-37-53 12:58:00* Test Item Value Reference Range Interpretation Comments Basophils (%) (Auto) (test code = 706-2) 0.0 0.0-1.0 [facility] HospitalFluoroscopic procedure less than one hour xewogzij5630-42-32 12:58:00* Test Item Value Reference Range Interpretation Comments IM GRANULOCYTES % (test code = IM GRANULOCYTES %) 0.3 0.0- 1.0 [facility] HospitalAutomated blood neutrophil count 2020-01-25 12:58:00* Test Item Value Reference Range Interpretation Comments Neutrophils # (Auto) (test code = 751-8) 2.5 2.1-6.9 [facility] HospitalBlood lymphocytes count (number/volume) 2020-01-25 12:58:00* Test Item Value Reference Range Interpretation Comments Lymphocytes # (Auto) (test code = 16373-8) 0.3 1.0-3.2 [facility] HospitalBlood monocytes automated count (number/volume)2020-01-25 12:58:00* Test Item Value Reference Range Interpretation Comments Monocytes # (Auto) (test code = 742-7) 0.3 0.2-0.8 [facility] HospitalAutomated blood eosinophil count 2020-01-25 12:58:00* Test Item Value Reference Range Interpretation Comments Eosinophils # (Auto) (test code = 711-2) 0.0 0.0-0.4 [facility] HospitalAutomated blood basophil count (count/volume)2020-01-25 12:58:00* Test Item Value Reference Range Interpretation Comments Basophils # (Auto) (test code = 704-7) 0.0 0.0-0.1 [facility] HospitalFluoroscopic procedure less than one hour hrrkguln5870-50-33 12:58:00* Test Item Value Reference Range Interpretation Comments Absolute Immature Granulocyte (auto (jennifer t code = Absolute Immature Granulocyte (auto) 0.01 0-0.[address] (PT) in platelet poor plasma by coagulation fmxju2236-52-87 12:58:00* Test Item Value Reference Range Interpretation Comments Prothrombin Time (test code = 5902-2) 12.9 11.9-14.5 [facility] HospitalINR in Platelet poor plasma by Coagulation musfi6828-64-65 12:58:00* Test Item Value Reference Range Interpretation Comments Prothromb Time International Ratio (test code = 6301-6) 0.93 Oral Anticoagulant Therapy INR Values:1. Low Intensity Therapy 1.5 - 2.02 . Moderate Intensity Therapy 2.0 - 3.03. High Intensity Therapy(1) 2.5 - 3. 54. High Intensity Therapy(2) 3.0 - 4.05. Panic Value INR > 5.0 [facility] HospitalActivated partial thromboplastin time (aPTT) in platelet poor plasma by coagulation khlqg8041-38-02 12:58:00* Test Item Value Reference Range Interpretation Comments Activated Partial Thromboplast Time (test code = 49924-0) 25.7 23.8-35.[address] [facility] or plasma sodium measurement (moles/volume)2020-01-25 12:58:00* Test Item Value Reference Range Interpretation Comments Sodium Level (test code = 2951-2) 134 136-[address] [facility] [facility]um or plasma potassium measurement (moles/volume)2020-01-25 12:58:00* Test Item Value Reference Range Interpretation Comments Potassium Level (test code = 2823-3) 4.1 3.5-5.[address] [facility]um or plasma chloride measurement (moles/volume)2020-01-25 12:58:00* Test Item Value Reference Range Interpretation Comments Chloride Level (test code = 2075-0) 103 98-[address] [facility]erum or plasma carbon dioxide, total measurement (moles/volume)2020-01-25 12:58:00* Test Item Value Reference Range Interpretation Comments Carbon Dioxide Level (test code = 2028-9) 18 22-[address] [facility] Hospitalerum or plasma anion riv4032-21-21 12:58:00* Test Item Value Reference Range Interpretation Comments Anion Gap (test code = 35113-0) 17.1 8-[address] [facility]erum or plasma urea nitrogen measurement (mass/volume)2020-01-25 12:58:00* Test Item Value Reference Range Interpretation Comments Blood Urea Nitrogen (test code = 3094-0) 17 7-[address] [facility]erum or plasma creatinine measurement (mass/volume)2020-01-25 12:58:00* Test Item Value Reference Range Interpretation Comments Creatinine (test code = 2160-0) 1.79 0.57-1.[address] [facility]um or plasma urea nitrogen/creatinine mass zfylf9463-79-41 12:58:00* Test Item Value Reference Range Interpretation Comments BUN/Creatinine Ratio (test code = 3097-3) 9 6-25 [facility] HospitalEstimated glomerular filtration rate (GFR) wuvkrbsjzyfml9468-49-85 12:58:00* Test Item Value Reference Range Interpretation Comments Estimat Glomerular Filtration Rate (test code = 491047389) 27 >60 Ranges were taken from the National Kidney Disease Education Program and the [facility] Kidney Foundation literature.Reference ranges:60 or greater: Utdqgb75-42 ( for 3 consecutive months): Chronic kidney disease 15 or less: Kidney failureTexas Orthopedic HospitalGlucose bnbrdtvtzjh1584-35-59 12:58:00* Test Item Value Reference Range Interpretation Comments Glucose Level (test code = QZQ1751) 100 74-[address] [facility]erum or plasma calcium measurement (mass/volume)2020-01-25 12:58:00* Test Item Value Reference Range Interpretation Comments Calcium Level (test code = 66868-5) 8.6 8.4-10.[address] [facility] Hospitalerum or plasma magnesium measurement (mass/volume)2020-01-25 12:58:00* Test Item Value Reference Range Interpretation Comments Magnesium Level (test code = 57179-1) 2.0 1.3-2.[address] [facility] Hospitalerum or plasma total bilirubin measurement (mass/volume)2020-01-25 12:58:00* Test Item Value Reference Range Interpretation Comments Total Bilirubin (test code = 1975-2) 0.4 0.2-1.2 [facility] HospitalFluoroscopic procedure less than one hour dyjrhcls5539-05-95 12:58:00* Test Item Value Reference Range Interpretation Comments Aspartate Amino Transf (AST/SGOT) (test code = Aspartate Amino Transf (AST/SGOT)) 34 5-[address] [facility] Hospitalerum or plasma alanine aminotransferase measurement (enzymatic activity/volume)2020-01-25 12:58:00* Test Item Value Reference Range Interpretation Comments Alanine Aminotransferase (ALT/SGPT) (test code = 1742-6) 38 0-[address] [facility]erum or plasma protein measurement (mass/volume)2020-01-25 12:58:00* Test Item Value Reference Range Interpretation Comments Total Protein (test code = 2885-2) 6.5 6.5-8.[address] [facility]um or plasma albumin measurement (mass/volume)2020-01-25 12:58:00* Test Item Value Reference Range Interpretation Comments Albumin (test code = 1751-7) 3.6 3.5-5.0 [facility] HospitalPlasma globulin measurement (mass/volume) 2020-01-25 12:58:00* Test Item Value Reference Range Interpretation Comments Globulin (test code = 57678-2) 2.9 2.3-3.[address] [facility]erum or plasma albumin/globulin mass ugcso1973-42-87 12:58:00* Test Item Value Reference Range Interpretation Comments Albumin/Globulin Ratio (test code = 1759-0) 1.2 0.8-2.[address] [facility]um or plasma alkaline phosphatase measurement (enzymatic activity/volume)2020-01-25 12:58:00* Test Item Value Reference Range Interpretation Comments Alkaline Phosphatase (test code = 6768-6) 96 40-150 [facility] HospitalBNP Ylp-vOiv2176-94-31 12:58:00* Test Item Value Reference Range Interpretation Comments B-Type Natriuretic Peptide (test code = 28917-9) 18.6 0-[address] [facility]um or plasma creatine kinase measurement (enzymatic activity/volume)2020-01-25 12:58:00* Test Item Value Reference Range Interpretation Comments Creatine Kinase (test code = 2157-6) 25 29-[address] [facility] Hospitalerum or plasma creatine kinase MB measurement (mass/volume)2020-01-25 12:58:00* Test Item Value Reference Range Interpretation Comments Creatine Kinase MB (test code = 99241-5) 0.80 0-5.0 [facility] HospitalTroponin I measurement by highly sensitive enzyme lxnzcqyymjo6802-63-11 12:58:00* Test Item Value Reference Range Interpretation Comments Troponin I (test code = 40626-2) 0.014 0-0.[address] [facility] Hospitalerum or plasma thyrotropin measurement by detection limit <= 0.005 miu/l (units/volume)2020-01-25 12:58:00* Test Item Value Reference Range Interpretation Comments Thyroid Stimulating Hormone (TSH) (test code = 21158-7) 0.902 0.350-4.940 [facility] HospitalFluoroscopic procedure less than one hour wfyjubkb4376-15-48 12:58:00* Test Item Value Reference Range Interpretation [...] SARS-CoV-2 test is a rapid, real-time RT-PCR [facility] intended for the qualitative detection of nucleic [...] 1427 on 01/25/20 by Amalia Peralta. RB [place].[facility] HospitalBlvir[facility] hospital leukocytes automated count (number/volume) 2019-11-09 16:34:00* Test Item Value Reference Range Interpretation Comments White Blood Count (test code = 6690-2) 6.57 4.8-10.8 [facility] HospitalBl[facility] erythrocytes automated count (number/volume)2019-11-09 16:34:00* Test Item Value Reference Range Interpretation Comments Red Blood Count (test code = 789-8) 3.55 3.6-5.1 [facility] HospitalBlood hemoglobin measurement (moles/volume)2019-11-09 16:34:00* Test Item Value Reference Range Interpretation Comments Hemoglobin (test code = 94319-9) 10.9 12.0-16.0 [facility] HospitalAutomated blood hematocrit (volume fraction)2019-11-09 16:34:00* Test Item Value Reference Range Interpretation Comments Hematocrit (test code = 4544-3) 33.7 34.2-44.1 [facility] HospitalAutomated erythrocyte mean corpuscular iwjxdh2869-29-29 16:34:00* Test Item Value Reference Range Interpretation Comments Mean Corpuscular Volume (test code = 787-2) 94.9 81-99 [facility] HospitalAutomated erythrocyte mean corpuscular hemoglobin (mass per erythrocyte)2019-11-09 16:34:00* Test Item Value Reference Range Interpretation Comments Mean Corpuscular Hemoglobin (test code = 785-6) 30.7 28-32 [facility] HospitalAutomated erythrocyte mean corpuscular hemoglobin concentration measurement (mass/volume)2019-11-09 16:34:00* Test Item Value Reference Range Interpretation Comments Mean Corpuscular Hemoglobin Concent (test code = 786-4) 32.3 31-35 [facility] HospitalRDW ObmEp-Edu1890-91-15 16:34:00* Test Item Value Reference Range Interpretation Comments Red Cell Distribution Width (test code = 85970-5) 12.0 11.7 -14.4 [facility] HospitalAutomated blood platelet count (count/volume)2019-11-09 16:34:00* Test Item Value Reference Range Interpretation Comments Platelet Count (test code = 777-3) 271 140-360 [facility] HospitalAutomated blood segmented neutrophil count as percentage of total pjlslrelir8392-75-63 16:34:00* Test Item Value Reference Range Interpretation Comments Neutrophils (%) (Auto) (test code = 82113-7) 65.4 38.7-80.0 [facility] blood lymphocyte count as percentage ot total szngsfnanb3361-10-42 16:34:00* Test Item Value Reference Range Interpretation Comments Lymphocytes (%) (Auto) (test code = 736-9) 24.0 18.0-39.1 [facility] HospitalAutomated blood monocyte count as percentage of total uvrsetfntt1247-70-56 16:34:00* Test Item Value Reference Range Interpretation Comments Monocytes (%) (Auto) (test code = 5905-5) 6.7 4.4-11.3 [facility] HospitalAut[facility] hospitaled blood eosinophil count as percentage of total xwrldwzdxw0530-19-36 16:34:00* Test Item Value Reference Range Interpretation Comments Eosinophils (%) (Auto) (test code = 713-8) 3.2 0.0-6.0 [facility] HospitalAutomated blood basophil count as percentage of total wnhrhalpcs3709-63-73 16:34:00* Test Item Value Reference Range Interpretation Comments Basophils (%) (Auto) (test code = 706-2) 0.5 0.0-1.0 [facility] HospitalFluoroscopic procedure less than one hour xvmhjxjb1687-09-94 16:34:00* Test Item Value Reference Range Interpretation Comments IM GRANULOCYTES % (test code = IM GRANULOCYTES %) 0.2 0.0- 1.0 [facility] HospitalAutomated blood neutrophil count 2019-11-09 16:34:00* Test Item Value Reference Range Interpretation Comments Neutrophils # (Auto) (test code = 751-8) 4.3 2.1-6.9 [facility] HospitalBlood lymphocytes count (number/volume) 2019-11-09 16:34:00* Test Item Value Reference Range Interpretation Comments Lymphocytes # (Auto) (test code = 92679-5) 1.6 1.0-3.2 [facility] HospitalBlood monocytes automated count (number/volume)2019-11-09 16:34:00* Test Item Value Reference Range Interpretation Comments Monocytes # (Auto) (test code = 742-7) 0.4 0.2-0.8 [facility] HospitalAutomated blood eosinophil count 2019-11-09 16:34:00* Test Item Value Reference Range Interpretation Comments Eosinophils # (Auto) (test code = 711-2) 0.2 0.0-0.4 [facility] HospitalAutomated blood basophil count (count/volume)2019-11-09 16:34:00* Test Item Value Reference Range Interpretation Comments Basophils # (Auto) (test code = 704-7) 0.0 0.0-0.1 [facility] HospitalFluoroscopic procedure less than one hour poxsrkcj7661-02-59 16:34:00* Test Item Value Reference Range Interpretation Comments Absolute Immature Granulocyte (auto (jennifer t code = Absolute Immature Granulocyte (auto) 0.01 0-0.1 [facility] HospitalProthrombin time (PT) in platelet poor plasma by coagulation mhluq6158-47-49 16:34:00* Test Item Value Reference Range Interpretation Comments Prothrombin Time (test code = 5902-2) 13.5 11.9-14.5 [facility] HospitalINR in Platelet poor plasma by Coagulation yjfnz3367-14-03 16:34:00* Test Item Value Reference Range Interpretation Comments Prothromb Time International Ratio (test code = 6301-6) 0.97 Oral Anticoagulant Therapy INR Values:1. Low Intensity Therapy 1.5 - 2.02 . Moderate Intensity Therapy 2.0 - 3.03. High Intensity Therapy(1) 2.5 - 3. 54. High Intensity Therapy(2) 3.0 - 4.05. Panic Value INR > 5.0 [facility] HospitalActivated partial thromboplastin time (aPTT) in platelet poor plasma by coagulation invkm7672-15-96 16:34:00* Test Item Value Reference Range Interpretation Comments Activated Partial Thromboplast Time (test code = 32831-4) 26.1 23.8-35.[address] [facility] or plasma sodium measurement (moles/volume)2019-11-09 16:34:00* Test Item Value Reference Range Interpretation Comments Sodium Level (test code = 2951-2) 140 136-[address] [facility] [facility] or plasma potassium measurement (moles/volume)2019-11-09 16:34:00* Test Item Value Reference Range Interpretation Comments Potassium Level (test code = 2823-3) 4.5 3.5-5.[address] [facility]erum or plasma chloride measurement (moles/volume)2019-11-09 16:34:00* Test Item Value Reference Range Interpretation Comments Chloride Level (test code = 2075-0) 106 98-[address] [facility]er[facility] or plasma carbon dioxide, total measurement (moles/volume)2019-11-09 16:34:00* Test Item Value Reference Range Interpretation Comments Carbon Dioxide Level (test code = 2028-9) 26 22-[address] [facility] Hospitalerum or plasma anion [id number] 16:34:00* Test Item Value Reference Range Interpretation Comments Anion Gap (test code = 44629-4) 12.5 8-[address] [facility] Hospitalerum or plasma urea nitrogen measurement (mass/volume)2019-11-09 16:34:00* Test Item Value Reference Range Interpretation Comments Blood Urea Nitrogen (test code = 3094-0) 20 7-[address] [facility] Hospitalerum or plasma creatinine measurement (mass/volume)2019-11-09 16:34:00* Test Item Value Reference Range Interpretation Comments Creatinine (test code = 2160-0) 1.72 0.57-1.[address] [facility] Hospitalerum or plasma urea nitrogen/creatinine mass tgjna1682-88-93 16:34:00* Test Item Value Reference Range Interpretation Comments BUN/Creatinine Ratio (test code = 3097-3) 12 6-25 [facility] HospitalEstimated glomerular filtration rate (GFR) oeqgefkomevrj8631-12-13 16:34:00* Test Item Value Reference Range Interpretation Comments Estimat Glomerular Filtration Rate (test code = 193086854) 29 >60 Ranges were taken from the National Kidney Disease Education Program and the [facility] Foundation literature.Reference ranges:60 or greater: Unqpsb34-97 ( for 3 consecutive months): Chronic kidney disease 15 or less: Kidney failureCHI [facility] Medical CenterGlucose nvesqkenoaa9128-10-08 16:34:00* Test Item Value Reference Range Interpretation Comments Glucose Level (test code = ISH0097) 92 74-[address] [facility] Hospitalerum or plasma calcium measurement (mass/volume)2019-11-09 16:34:00* Test Item Value Reference Range Interpretation Comments Calcium Level (test code = 58449-9) 9.3 8.4-10.2 [facility] HospitalCHEST 2 FDMWB2690-40-80 16:02:00 [facility] [address] [place] [address] Patient Name: ROQUE CORRAL MR #: [id number] : 1940 Age/Sex: 79/F Req #: [id number] Adm Physician: KAYLIN JEONG MD Ordered by: KAYLIN JEONG MD Report #: [id number] Location: MED/SURG Room/Bed: [facility] Procedure: [id number] DX/CHEST 2 EWS Exam Date: 11/09/19 Exam [...] MD Fluoroscopic procedure less than one hour jotvuzpj9034-29-60 15:53:00* Test Item Value Reference Range Interpretation [...] complexity tests.Testing performed by [facility] [id number] [place], [place] [phone] Director: Danial Casillas M.D.CLIA # [id number] [facility]
--- OUTSIDE RECORDS SUMMARY | 2020-01-27 16:40 | XMS REPORT | Continuity of Care Document ---
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 Name Role Phone [email or web address] Unavailable Un available Problems Problem Status Onset Date Classification Date Reported Comments Source Low back pain 05/10/2018 11/23/2018 JIMMY Gonzalez Syncope and collapse 02/28/2018 09/13/2018 [facility] DX: [id number] AND COLLAPSE A ctive 02/21/2018 [facility] Pain in right foot 11/23/2018 JIMMY Gonzalez Other intervertebral disc degeneration, lumbar region 11/23/2018 JIMMY Gonzalez Other specified symptoms and signs invol ving the circulatory and respiratory systems 09/13/2018 [facility] Occlusion and stenosis of bilateral carotid arteries 09/13/2018 [facility] Medications No Data Provided for This Section Allergies, Adverse Reactions, Alerts Substance Category Reaction Severity Reaction type Status Date Reported Comments Source No Known Medication Allergies Assertion [facility] Immunizations Immunization Date Given Site Status Last Updated Comments Source pneumococcal 23-valent vaccine 07/24/2006 Right deltoid completed Jean JIMMY Gonzalez,[facility] Results No Data Provided for This [...] : 1940; Age: 77 years Female MR: [id number] Study: Carotid artery Doppler bilat US 02/24/2018 [...] occlusion High, low, or Variable undetectable SL: [id number] 02/24/2018 [facility] Consultation Notes No Data Provided for This Section Discharge Summaries No Data Provided for This Section History and Physicals No Data Provided for This Section Vital Signs No Data Provided for This Section Encounters Location Location Details Encounter Type Encounter Number Reason For Visit Attending Provider ADM Date DC Date Status Source [facility] [place] [facility] [id number] 00 Uday Jaskaran 09/27/2014 09/28/2014 [facility] [place] [facility] [id number] Uday Jessica 02/24/2018 02/25/2018 [facility] [place] [id number] [facility]2018 [facility] [place] Procedures No Data Provided for This Section Assessment and Plan No Data Provided for This Section Plan of Care No Data Provided for This Section Social History Social History Date Source No data available for this section 05/06/2018 [facility] [place] No data available for this section 02/25/2018 [facility] Family History No Data Provided for This Section Advance Directives No Data Provided for This Section Functional Status No Data Provided for This Section
[2020-01-27] MEDS ORDERED: TEMAZEPAM 7.5 MG CAP PO PRN (17:15)
[2020-01-27] MEDS ORDERED: ONDANSETRON HCL INJ 2MG/ML 2ML 2 MG/ML VIAL IV PRN (17:15)
[2020-01-27] MEDS ORDERED: POLYETHYLENE GLYCOL 3350 17 GM PACK PO PRN (17:15)
[2020-01-27] MEDS ORDERED: METOPROLOL TARTRATE INJ 1 MG/ML VIAL IV PRN (17:15)
--- NOTE | 2020-01-27 17:16 | NUR ---
PT DAUGHTER EDENILSON STATES SHE WILL BE THE CONTACT FROM NOW ON. CONTACT NUMBER IS [phone]
--- NOTE | 2020-01-27 18:45 | NUR ---
PHONE REPORT RECEIVED FROM FARZAD RODRIGUEZ, ER NURSE. PT IS COVID POSITIVE. SBAR REPORT GIVEN TO WILDER RODRIGUEZ, PM SHIFT.
--- NOTE | 2020-01-27 19:40 | NUR ---
Received the pt in report.aaox3.but pt is weak.admission assessment done.no resp.distress.iv to right ac #20 g patent.no pain voiced.home med reviewed.oriented to the unit. snacks provided.bed alarm on .bed locked and in lowest position.phone and call light within reach.instructed to call for assistance as needed.verbalized understanding.keep monitor the pt.
[2020-01-27 20:00] VITALS: BP 168/64
[2020-01-27 20:40] VITALS: BP 168/64
[2020-01-27 21:00] VITALS: BP 168/64
[2020-01-27] MEDS: TEMAZEPAM 15 MG CAP PO PRN (21:15)
[2020-01-27] MEDS: ACETAMINOPHEN 325 MG TAB PO PRN (21:28)
[2020-01-28] VITALS (8 sets, daily range): BP systolic 119–159; BP diastolic 56–61
--- NOTE | 2020-01-28 03:29 | NUR ---
Patient is resting in the bed.stable condition.
--- NOTE | 2020-01-28 06:22 | NUR ---
consultation notified.spoke to and spoke to Ms Mcgrath regarding consultation of .
--- NOTE | 2020-01-28 06:30 | NUR ---
new iv started to Blanche #20.
[2020-01-28 06:43] LABS: BASOPHILS % 0.2 % (0.0-1.0); EOSINOPHILS % 0.2 % (0.0-6.0); HEMOGLOBIN 11.4 g/dL (12.0-16.0); LYMPHOCYTES # (AUTO) 0.6 (1.0-3.2); LYMPHOCYTES % 13.5 % (18.0-39.1); MEAN CORPUSCULAR HEMOGLOBIN 29.4 pg (28-32); MEAN CORPUSCULAR HGB CONC 30.8 g/dL (31-35); MEAN CORPUSCULAR VOLUME 95.4 fL (81-99); MONOCYTES # (AUTO) 0.5 (0.2-0.8); MONOCYTES % 10.5 % (4.4-11.3); NEUTROPHILS # (AUTO) 3.4 (2.1-6.9); NEUTROPHILS % 75.4 % (38.7-80.0); PLATELET COUNT 172 x10e3/uL (140-360); RED BLOOD COUNT 3.88 x10e6/uL (3.6-5.1)
--- NOTE | 2020-01-28 06:58 | NUR ---
SBAR BEDSIDE REPORT GIVEN BY WILDER RODRIGUEZ, PM SHIFT. PT FOUND RESTING IN BED IN NO ACUTE DISTRESS. PATIENT IS ABLE TO MAKE NEEDS KNOWN AND DENIES ANY NEEDS AT THIS TIME. PT WAS EDUCATED ON FALL RISK PRECAUTIONS AND VERBALIZED UNDERSTANDING. CALL LIGHT AND BELONGINGS PLACED NEARBY. WILL CONTINUE TO MONITOR.
--- NOTE | 2020-01-28 07:07 | NUR ---
Bed side shift report given to oncoming Rn.stable condition.
[2020-01-28 07:36] LABS: ALBUMIN 3.9 g/dL (3.5-5.0); ALBUMIN/GLOBULIN RATIO 1.8 (0.8-2.0); ANION GAP 15.9 mmol/L (8-16); CALCIUM 8.4 mg/dL (8.4-10.2); CHOL/HDL RATIO 2.3 (3.0-3.6); CREATININE, SERUM 1.36 mg/dL (0.57-1.11); PHOSPHORUS 2.7 MG/DL (2.3-4.7); POTASSIUM 3.9 mmol/L (3.5-5.1)
[2020-01-28] MEDS: DOCUSATE SODIUM 100 MG CAP PO SCH ×2 (08:26→19:12)
[2020-01-28] MEDS: ZINC SULFATE 220 MG CAP PO SCH ×2 (08:26→19:12)
[2020-01-28] MEDS: CHOLECALCIFEROL 400 UNIT TAB PO SCH (08:26)
[2020-01-28] MEDS: FAMOTIDINE 20 MG/2 ML VIAL IV SCH ×2 (08:26→17:00)
[2020-01-28] MEDS: ASCORBIC ACID 500 MG TAB PO SCH ×2 (08:26→19:12)
--- NOTE | 2020-01-28 14:39 | Consultation ---
DATE OF CONSULTATION: 01/28/2020 Pulmonary Critical Care Progress Note. CHIEF COMPLAINT: Unsteadiness and loss of taste and appetite. HISTORY OF PRESENT ILLNESS: The patient is a 79-year-old woman. The patient reports feeling malaise and illness for little over 10 days. She has noticed decreased appetite and loss of taste. She came to the hospital because she felt probably an unsteady. She did not have headache. She denied cough or fevers. She had no chest pain. After arrival in the emergency department, she had a COVID-19 test that was positive, but her chest x-ray was negative. Her CT scan of the head showed no acute disease. 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 2. Hypercholesterolemia. 3. No prior history of stroke. 4. No prior history of heart disease. 5. No prior history of respiratory disease. PAST SURGICAL HISTORY: Noncontributory. ALLERGIES: THE PATIENT IS ALLERGIC TO MORPHINE. SOCIAL HISTORY: The patient has never been a smoker. The patient has never been a drinker. REVIEW OF SYSTEMS: There is no fever. She does have unsteadiness and the dizziness. She has no neck pain. There is no chest pain. The patient has no difficulty breathing. There is minimal cough. There is no abdominal pain. There is no nausea or vomiting. The patient has no leg edema. PHYSICAL EXAMINATION: VITAL SIGNS: The patient is afebrile, the blood pressure is 148/60 and the heart rate is 64, and saturation is 94%. HEENT: Shows no facial swelling or erythema. LYMPHATIC: Shows no submandibular, cervical, supraclavicular adenopathy. CARDIAC: Reveals regular rhythm with normal S1, S2. There are no murmurs or rubs heard. LUNGS: Auscultation of lungs reveals crackles and rhonchi bilaterally. There is no wheezing. ABDOMEN: Soft and nontender. There is no rebound or guarding. EXTREMITIES: Shows no leg edema or calf tenderness. There is no cyanosis or clubbing. SKIN: Shows no rashes. NEUROLOGICAL: Shows no focal abnormalities. LABORATORY DATA: The BUN to creatinine ratio is 13 to 1.36. The carbon dioxide is 18. The other electrolytes are within normal limits. The albumin is 3.9. White blood cell count is 4.46 and hemoglobin is 11.4. The platelet count is 172. RADIOGRAPHIC DATA: Chest x-ray shows no active disease. CT scan of the brain shows no acute abnormalities. IMPRESSION: 1. COVID-19 infection. 2. Unsteadiness and abnormal gait. 3. Acute renal insufficiency. 4. Anemia, unspecified. 5. Metabolic acidosis, continue current medications. PLAN: 1. Judicious use of IV fluids. 2. Echocardiogram. 3. Physical therapy evaluation. 4. Oxygen as needed. 5. Heparin for DVT prophylaxis. 6. The patient does not need dexamethasone at this time because she is not on oxygen. 7. The patient does not need remdesivir. Raul Tovar MD [facility] /[id number]
--- NOTE | 2020-01-28 14:55 | NUR ---
infectious disease consultation I am feeling weak and dizzy Unsteadiness and loss of taste and appetite. HISTORY OF PRESENT ILLNESS: The patient is a 79-year-old woman. The patient reports feeling malaise and illness for little over 10 days. She has noticed decreased appetite and loss of taste. The patient denies any fever or any chills denies any nausea vomiting or diarrhea she also denies any shortness of breath she is currently lying in bed comfortably off oxygen She came to the hospital because she felt probably an unsteady. She did not have headache. She denied cough or fevers. She had no chest pain. After arrival in the emergency department, she had a COVID-19 test that was positive, but her chest x-ray was negative. Her CT scan of the head showed no acute disease. 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 2. Hypercholesterolemia. 3. No prior history of stroke. 4. No prior history of heart disease. 5. No prior history of respiratory disease. PAST SURGICAL HISTORY: Noncontributory. ALLERGIES: THE PATIENT IS ALLERGIC TO MORPHINE. SOCIAL HISTORY: The patient has never been a smoker. The patient has never been a drinker. REVIEW OF SYSTEMS: There is no fever. She does have unsteadiness and the dizziness. She has no neck pain. There is no chest pain. The patient has no difficulty breathing. There is minimal cough. There is no abdominal pain. There is no nausea or vomiting. The patient has no leg edema. her symptoms within normal limits except that mentioned above PHYSICAL EXAMINATION: she is currently alert oriented does not seem to be in acute distress not hypoxemic of oxygen VITAL SIGNS: The patient is afebrile, the blood pressure is 148/60 and the heart rate is 64, and saturation is 94%. HEENT: Shows no facial swelling or erythema. LYMPHATIC: Shows no submandibular, cervical, supraclavicular adenopathy. CARDIAC: Reveals regular rhythm with normal S1, S2. There are no murmurs or rubs heard. LUNGS: Auscultation of lungs reveals crackles and rhonchi bilaterally. There is no wheezing. ABDOMEN: Soft and nontender. There is no rebound or guarding. EXTREMITIES: Shows no leg edema or calf tenderness. There is no cyanosis or clubbing. SKIN: Shows no rashes. NEUROLOGICAL: Shows no focal abnormalities. LABORATORY DATA: The BUN to creatinine ratio is 13 to 1.36. The carbon dioxide is 18. The other electrolytes are within normal limits. The albumin is 3.9. White blood cell count is 4.46 and hemoglobin is 11.4. The platelet count is 172. RADIOGRAPHIC DATA: Chest x-ray shows no active disease. CT scan of the brain shows no acute abnormalities. IMPRESSION: 1. COVID-19 infection. 2. Unsteadiness and abnormal gait. 3. Acute renal insufficiency. 4. Anemia, unspecified. there is no need for antibiotic no need for Decadron continue with supportive care PT OT Recheck CBC check in panel
[2020-01-28] MEDS ORDERED: ONDANSETRON HCL 4 MG ORAL DISINTEGRATING TAB PO PRN (15:30)
[2020-01-28] MEDS: ACETAMINOPHEN 325 MG TAB PO PRN (16:09)
[2020-01-28] MEDS ORDERED: CEFTRIAXONE SOD 1 GM VIAL IM ONE (16:45)
[2020-01-28] MEDS ORDERED: CEFTRIAXONE SOD 1 GM/NS 50 ML 50 ML IV ONE (17:00)
[2020-01-28] MEDS: MEMANTINE 10 MG TAB PO SCH (17:00)
--- NOTE | 2020-01-28 18:22 | Diagnostic Imaging Report ---
EXAMINATION: CHEST SINGLE (PORTABLE) INDICATION: fever COMPARISON: Chest x-ray dated 01/27/2020. FINDINGS: AP view TUBES and LINES: None. . LUNGS/PLEURA: Lungs are well inflated. There is a new right upper lobe opacity and slight worsening of bilateral faint opacities. There is no pleural effusion or pneumothorax. HEART AND MEDIASTINUM: The cardiomediastinal silhouette is unremarkable. BONES AND SOFT TISSUES: No acute osseous lesion. Soft tissues are unremarkable. UPPER ABDOMEN: No free air under the diaphragm. IMPRESSION: New right upper lobe opacity and slight worsening of bilateral faint opacities could represent pneumonia in appropriate clinical setting. Signed by: Arnaldo Cassidy MD on 01/28/2020 6:18 PM
[2020-01-28] MEDS: TEMAZEPAM 15 MG CAP PO PRN (21:47)
[2020-01-28 21:49] LABS: BILIRUBIN,URINE NEGATIVE (NEGATIVE); CLARITY,URINE CLEAR (CLEAR); COLOR,URINE YELLOW (YELLOW); KETONES,URINE NEGATIVE (NEGATIVE); LEUKOCYTE ESTERASE ,URINE NEGATIVE (NEGATIVE); NITRITE,URINE POSITIVE (NEGATIVE); PROTEIN,URINE DIPSTICK 2+ (NEGATIVE); URINE UROBILINOGEN 1 mg/dL (0.2 - 1)
--- NOTE | 2020-01-28 21:50 | NUR ---
Urine sent to the lab.blood reece and sent to the lab.
[2020-01-28 21:59] LABS: BACTERIA,URINE MANY /HPF; RBC,URINE 0-5 /HPF (0-5)
[2020-01-28] MEDS: HEPARIN SOD (PORCINE) 5,000 UNIT/ML VIAL SC SCH (22:01)
[2020-01-29] VITALS (7 sets, daily range): BP systolic 144–171; BP diastolic 53–61
[2020-01-29] MEDS: AZITHROMYCIN 500MG/NS 250 ML 250 ML IV SCH (02:08)
--- NOTE | 2020-01-29 06:45 | NUR ---
SBAR REPORT RECEIVED FROM ROSETTE RODRIGUEZ, PM SHIFT. PT FOUND RESTING IN BED IN NO ACUTE DISTRESS. PT IS ABLE TO MAKE NEEDS KNOWN AND DENIES ANY NEEDS AT THIS TIME. PT WAS EDUCATED ON FALL RISK PRECAUTIONS AND VERBALIZED UNDERSTANDING. CALL LIGHT AND BELONGINGS PLACED NEARBY. WILL CONTINUE TO MONITOR.
--- NOTE | 2020-01-29 06:57 | NUR ---
H&P cc: sob/cough HPI: 79yoF, PCP , developed sob, found to have multifocal PNA and COVID19. PMH: dementia, mood d/o, gait dysfunction uses walker, recurrent falls PShx; unknown Allergies; see emr SH/FH: lives alone; meds;see MAR ROS:no cp/dizziness/LENNON/vision changes/skin rash/leg pain/N/V/D/focal limb weakness v/s revd PE tired appearing anicteric ns1s2 reduced bs; mildly coarse soft nt nd no e/t skin dry flat affect awake; alert and oriented x2 labs/meds revd A/P: 79yoF Multifocal PNA COVID19 infection Viral PNA UTi Leukopenia Dementia PLAN Antimicrobials per ID vitC/zinc; antitussives; loratadine Resume memantine; and SSRI Heparin; f/u echo FARHAT RONQUILLO MD, PHD.
[2020-01-29] MEDS ORDERED: DOCUSATE SODIUM 100 MG CAP PO PRN (07:00)
[2020-01-29] MEDS ORDERED: ZOLPIDEM TARTRATE 5 MG TAB PO PRN (07:00)
--- NOTE | 2020-01-29 07:03 | NUR ---
Bed side shift report given to oncoming RN.stable condition.
[2020-01-29] MEDS: DOCUSATE SODIUM 100 MG CAP PO SCH ×2 (08:47→17:20)
[2020-01-29] MEDS: CEFTRIAXONE SOD 1 GM/NS 50 ML 50 ML IV SCH (08:47)
[2020-01-29] MEDS: FAMOTIDINE 20 MG/2 ML VIAL IV SCH ×2 (08:47→17:20)
[2020-01-29] MEDS: FLUOXETINE HCL 20 MG CAP PO SCH (08:48)
[2020-01-29] MEDS: MEMANTINE 10 MG TAB PO SCH ×2 (08:48→17:20)
[2020-01-29] MEDS: ASCORBIC ACID 500 MG TAB PO SCH ×2 (08:48→17:20)
[2020-01-29] MEDS: ZINC SULFATE 220 MG CAP PO SCH ×2 (08:48→17:20)
[2020-01-29] MEDS: CHOLECALCIFEROL 400 UNIT TAB PO SCH (08:48)
[2020-01-29] MEDS: HEPARIN SOD (PORCINE) 5,000 UNIT/ML VIAL SC SCH ×2 (08:50→20:00)
--- NOTE | 2020-01-29 09:28 | NUR ---
CALLED AND SPOKE WITH SON ABOUT CHOICE FOR FACILITY, GAVE OPTIONS FOR COVID BUILDINGS OF [facility] AND [facility], HE CHOSE [facility], ASKED I EMAIL HIM THE NAME OF THE FACILITY SO HE CAN SHARE WITH HIS SISTER. WILL GET PACKET TOGETHER AND FAX TO FACILITY.
--- NOTE | 2020-01-29 09:53 | NUR ---
THERE IS A 2 WEEK WAIT LIST FOR [facility] NON-FUNDED, [facility] TEAM IS HERE TO ACCESS PT. Addendum: 01/29/20 at 0954 by Amparo Peterson CM ENTERED IN ERROR, INCORRECT PT. DISREGARD
--- NOTE | 2020-01-29 09:55 | NUR ---
NEED H AND P TO COMPLETE PACKET, NOTIFIED MD, WILL FAX WHEN GET INFORMATION.
--- NOTE | 2020-01-29 13:30 | NUR ---
D/C summary Principal dx: Multifocal PNA COVID19 infection Viral PNA UTI Leukopenia Secondary Dx: Dementia PLAN Antimicrobials per ID vitC/zinc; antitussives; loratadine Resume memantine; and SSRI Heparin; f/u echo d/c to [facility] Stable d/c>35mins f/u medical team at other hospital. PCP 2 days after discharge from hospital. FARHAT RONQUILLO MD, PHD.
--- NOTE | 2020-01-29 13:45 | NUR ---
NURSING HOME FACILITY DISCHARGE INFORMATION PATIENT HAS BEEN ACCEPTED TO: NAME: AYDEN LUIS ADDRESS:[address] [place] [address] DR ACCEPTING STOCK DIGGER:PERLA ALLEN MD:JARAD ROOM:[id number] NURSE CALL REPORT TO: [phone] IMM SIGNED AND OBTAINED (if applicable): IMM THE FOLLOWING DOCUMENTS MUST ACCOMPANY PATIENT FOR TRANSFER: COPIED CHART: PACKET
[2020-01-29] MEDS: ACETAMINOPHEN 325 MG TAB PO PRN (14:35)
--- NOTE | 2020-01-29 14:55 | NUR ---
DR. BOLIVAR AND DR. FARHAT RONQUILLO WERE MADE AWARE OF PATIENT'S POSITIVE ANAEROBIC BLOOD CULTURE RESULTS OF GRAM POSITIVE COCCI IN CLUSTERS. ORDER RECEIVED FOR VANCOMYCIN 1G X1 AND MD TO ROUND TODAY PER DR. BOLIVAR. HOLD D/C FOR NOW PER DR. FARHAT RONQUILLO
[2020-01-29] MEDS ORDERED: VANCOMYCIN 1GM/NS 250 ML 250 ML IV ONE (15:30)
--- NOTE | 2020-01-29 16:38 | Progress Note ---
DATE: SUBJECTIVE: The patient had some fevers yesterday. Chest x-ray showed an upper lobe pneumonia. She was started on antibiotics. PHYSICAL EXAMINATION: VITAL SIGNS: The blood pressure is 171/60 and saturation is 98%. T-max is 100.4. HEENT: Shows no facial swelling or erythema. LYMPHATIC: Shows no submandibular, cervical, or supraclavicular adenopathy. CARDIAC: Reveals regular rate and rhythm with normal S1 and S2. LUNGS: Auscultation of lungs reveals rhonchorous breath sounds bilaterally. There is no wheezing. ABDOMEN: Soft and nontender. There is no rebound or guarding. EXTREMITIES: Show no leg edema or calf tenderness. There is no cyanosis or clubbing. SKIN: Shows no rashes. LABORATORY DATA: White blood cell count is 4.4 and the hemoglobin is 11.4. The platelet count is 172. The BUN to creatinine ratio is 13 to 1.36. Carbon dioxide is 18. IMPRESSION: 1. COVID-19 infection. 2. Right upper lobe bacterial pneumonia. 3. Acute renal insufficiency. 4. Anemia. PLAN: 1. Continue current antibiotics. 2. DVT prophylaxis. 3. Out of bed as tolerated. 4. Oxygen as needed. Raul Tovar MD [facility] /[id number]
--- NOTE | 2020-01-29 18:41 | NUR ---
progress note Infectious disease parents note the patient currently doing well there is no new complaints. Review of system otherwise unremarkable Lab data review chart reviewed The patient had some fevers yesterday. Chest x-ray showed an upper lobe pneumonia. She was started on antibiotics. PHYSICAL EXAMINATION: VITAL SIGNS: The blood pressure is 171/60 and saturation is 98%. T-max is 100.4. HEENT: Shows no facial swelling or erythema. LYMPHATIC: Shows no submandibular, cervical, or supraclavicular adenopathy. CARDIAC: Reveals regular rate and rhythm with normal S1 and S2. LUNGS: Auscultation of lungs reveals rhonchorous breath sounds bilaterally. There is no wheezing. ABDOMEN: Soft and nontender. There is no rebound or guarding. EXTREMITIES: Show no leg edema or calf tenderness. There is no cyanosis or clubbing. SKIN: Shows no rashes. LABORATORY DATA: White blood cell count is 4.4 and the hemoglobin is 11.4. The platelet count is 172. The BUN to creatinine ratio is 13 to 1.36. Carbon dioxide is 18. IMPRESSION: 1. COVID-19 infection. 2. Right upper lobe bacterial pneumonia. 3. Acute renal insufficiency. 4. Anemia. UTI continue Rocephin Currently azithromycin blood culture showed gram-positive cocci will start vancomycin
[2020-01-29] MEDS: SIMVASTATIN 20 MG TAB PO SCH (19:36)
[2020-01-30] VITALS (7 sets, daily range): BP systolic 125–181; BP diastolic 52–71
[2020-01-30] MEDS: AZITHROMYCIN 500MG/NS 250 ML 250 ML IV SCH (00:28)
[2020-01-30] MEDS: ACETAMINOPHEN 325 MG TAB PO PRN ×2 (00:29→15:59)
[2020-01-30] MEDS: HYDRALAZINE HCL 20 MG/ML VIAL IV PRN ×2 (00:29→16:00)
--- NOTE | 2020-01-30 01:13 | NUR ---
patient sbp >150 given IV hydralazine, temp 99.5oral given PRN tylenol, and having anxiety episode stating "I think I'm going to " reassurance given, pt now calm resting after educated on her status, vitals and medication, encouraged to talk with family to ease fears and get reassurance, prn given for anxiety
[2020-01-30] MEDS: TEMAZEPAM 15 MG CAP PO PRN ×2 (01:17→21:21)
--- NOTE | 2020-01-30 08:00 | NUR ---
PATIENT IS ALERT, AWAKE, AND IN STABLE CONDITION WITH NO S/S OF RESPIRATORY DISTRESS. PATIENT DENIES PAIN. TELEMETRY APPLIED. BEDSIDE COMMODE AVAILABLE FOR PATIENT NEAR BED. BED ALARM APPLIED. CALL LIGHT IS WITHIN REACH, PATIENT INSTRUCTED TO CALL FOR ASSISTANCE NEEDED.
[2020-01-30] MEDS ORDERED: VANCOMYCIN 1GM/NS 250 ML 250 ML IV SCH (08:15)
[2020-01-30] MEDS: FAMOTIDINE 20 MG/2 ML VIAL IV SCH ×2 (08:16→16:00)
[2020-01-30] MEDS: MEMANTINE 10 MG TAB PO SCH ×2 (08:16→16:00)
[2020-01-30] MEDS: CEFTRIAXONE SOD 1 GM/NS 50 ML 50 ML IV SCH (08:16)
[2020-01-30] MEDS: ZINC SULFATE 220 MG CAP PO SCH ×2 (08:16→16:00)
[2020-01-30] MEDS: DOCUSATE SODIUM 100 MG CAP PO SCH ×2 (08:16→16:00)
[2020-01-30] MEDS: FLUOXETINE HCL 20 MG CAP PO SCH (08:16)
[2020-01-30] MEDS: ASCORBIC ACID 500 MG TAB PO SCH ×2 (08:16→16:00)
[2020-01-30] MEDS: CHOLECALCIFEROL 400 UNIT TAB PO SCH (08:16)
[2020-01-30] MEDS: HEPARIN SOD (PORCINE) 5,000 UNIT/ML VIAL SC SCH ×2 (08:16→20:59)
[2020-01-30] MEDS ORDERED: SODIUM CHLORIDE 0.9% 250ML 250 ML ONE (08:27)
--- NOTE | 2020-01-30 10:55 | NUR ---
IM- progress note O/N see below ROS:no cp/dizziness/LENNON/vision changes/skin rash/leg pain/N/V/D/focal limb weakness v/s revd PE tired appearing anicteric ns1s2 reduced bs; mildly coarse soft nt nd no e/t skin dry flat affect awake; alert and oriented x2 labs/meds revd A/P: 79yoF Multifocal PNA COVID19 infection Viral PNA GNR UTI Coag negative staph Bacteremia Leukopenia Dementia PLAN Antimicrobials per ID vitC/zinc; antitussives; loratadine Resume memantine; and SSRI Heparin; f/u echo 9-20 COVID19 positive; Coag negative staph Bacteremia; GNR UTI; continue antimicrobials at this facility; check labs FARHAT RONQUILLO MD, PHD.
[2020-01-30 11:33] LABS: EOSINOPHILS % 0.2 % (0.0-6.0); HEMATOCRIT 31.5 % (34.2-44.1); HEMOGLOBIN 10.3 g/dL (12.0-16.0); LYMPHOCYTES # (AUTO) 0.8 (1.0-3.2); LYMPHOCYTES % 17.6 % (18.0-39.1); MEAN CORPUSCULAR HEMOGLOBIN 29.8 pg (28-32); MEAN CORPUSCULAR HGB CONC 32.7 g/dL (31-35); MONOCYTES # (AUTO) 0.3 (0.2-0.8); NEUTROPHILS # (AUTO) 3.1 (2.1-6.9); NEUTROPHILS % 73.5 % (38.7-80.0); PLATELET COUNT 218 x10e3/uL (140-360); RED BLOOD COUNT 3.46 x10e6/uL (3.6-5.1); RED CELL DISTRIBUTION WIDTH 12.1 % (11.7-14.4)
[2020-01-30 11:44] LABS: ANION GAP 15.4 mmol/L (8-16); CALCIUM 8.4 mg/dL (8.4-10.2); CREATININE, SERUM 1.16 mg/dL (0.57-1.11); POTASSIUM 3.4 mmol/L (3.5-5.1)
--- NOTE | 2020-01-30 14:27 | Progress Note ---
DATE: SUBJECTIVE: Ms. Chrissy Barreto is doing well. There are no new complaints. She is on room air. Her white count is 4.5 and hemoglobin of 10. Her sodium 138. REVIEW OF SYSTEMS: Otherwise unremarkable. PHYSICAL EXAMINATION: GENERAL: She is currently alert and oriented. VITAL SIGNS: Stable, currently afebrile. HEENT: She is not icteric. NECK: Supple. CHEST: Clear. HEART: S1 and S2. ABDOMEN: Soft. Bowel sounds present. EXTREMITIES: No edema. SKIN: No rash. LABORATORY DATA: Her urine showing gram-negative rods. Her blood cultures came back coagulase-negative staph, which I think is contamination. IMPRESSION: 1. Pneumonia, clinically getting better. 2. Urinary tract infection, on Rocephin, also low count. We will discontinue vancomycin. She is currently on Rocephin. We will follow. MD BLANKA Mathews/DENYS /[id number]
[2020-01-30] MEDS ORDERED: GUAIFENESIN/CODEINE 10 ML CUP PO PRN (14:30)
--- NOTE | 2020-01-30 15:02 | Progress Note ---
DATE: SUBJECTIVE: The patient complains of a dry cough. She is not having any fevers. PHYSICAL EXAMINATION: VITAL SIGNS: The patient is afebrile. The blood pressure is 151/60, saturation is 95%, and the pulse is 65. HEENT: Shows no facial swelling or erythema. LYMPHATIC: Shows no submandibular, cervical, or supraclavicular adenopathy. NECK: Shows no JVD or thyromegaly. There is no nuchal rigidity. CARDIAC: Reveals regular rate and rhythm with normal S1 and S2. LUNGS: Auscultation of lungs reveals decreased breath sounds at the bases. There is no wheezing. ABDOMEN: Soft and nontender. There is no rebound or guarding. EXTREMITIES: Show no leg edema or calf tenderness. There is no cyanosis or clubbing. SKIN: Shows no rashes. LABORATORY DATA: Creatinine improved to 1.16. The potassium is 3.4. Hemoglobin is 10.3 and the white blood cell count is 4.26. The platelet count is 218. IMPRESSION: 1. Community-acquired pneumonia with sepsis, present on admission. 2. COVID-19 and viral pneumonia. 3. Acute kidney injury. 4. Urinary tract infection. 5. Anemia. PLAN: 1. Continue current antibiotics and complete full 10-day course. The patient is okay to be switched over to oral antibiotics. 2. Cough suppressant as needed. 3. Continue to monitor and control blood sugar. 4. Continue to monitor renal function. 5. Out of bed as tolerated. 6. Physical therapy. Raul Tovar MD [facility]/MYNORL /[id number]
--- NOTE | 2020-01-30 18:54 | NUR ---
PATIENT IN STABLE CONDITION WITH NO S/S OF RESPIRATORY DISTRESS- NO PAIN VOICED. TELEMETRY APPLIED. CALL LIGHT IS WITHIN REACH, PATIENT INSTRUCTED TO CALL FOR ASSISTANCE NEEDED. BED ALARM APPLIED. REPORT GIVEN TO ONCOMING NURSE.
--- NOTE | 2020-01-30 19:37 | NUR ---
RECEIVED REPORT FROM DAY NURSE. PATIENT IS RESTING COMFORTABLY IN THE BED. BED IS IN THE LOWEST POSITION AND CALL LIGHT IS WITHIN REACH. WILL CONTINUE TO MONITOR PATIENT.
[2020-01-30] MEDS: SIMVASTATIN 20 MG TAB PO SCH (20:59)
[2020-01-31] VITALS (7 sets, daily range): BP systolic 137–154; BP diastolic 47–59
--- NOTE | 2020-01-31 06:45 | NUR ---
patient is resting in the bed, bed is in lowest position and call light is within reach.
[2020-01-31] MEDS: DOCUSATE SODIUM 100 MG CAP PO SCH (07:43)
[2020-01-31] MEDS: FAMOTIDINE 20 MG/2 ML VIAL IV SCH (07:43)
[2020-01-31] MEDS: CEFTRIAXONE SOD 1 GM/NS 50 ML 50 ML IV SCH (07:43)
[2020-01-31] MEDS: FLUOXETINE HCL 20 MG CAP PO SCH (07:43)
[2020-01-31] MEDS: MEMANTINE 10 MG TAB PO SCH (07:43)
[2020-01-31] MEDS: ASCORBIC ACID 500 MG TAB PO SCH (07:44)
[2020-01-31] MEDS: CHOLECALCIFEROL 400 UNIT TAB PO SCH (07:44)
[2020-01-31] MEDS: ZINC SULFATE 220 MG CAP PO SCH (07:44)
[2020-01-31] MEDS: HEPARIN SOD (PORCINE) 5,000 UNIT/ML VIAL SC SCH (08:04)
--- NOTE | 2020-01-31 11:15 | NUR ---
Spoke with Dr. Guzman and stated it's okay to discharge patient today.
--- NOTE | 2020-01-31 11:35 | Progress Note ---
DATE: SUBJECTIVE: Few coughs. Otherwise no secondary shortness of breath. No nausea or vomiting. The patient is disappointed having COVID-19 infection. Discussed with the nurse. No new events, however, she had a fever of 100.8 yesterday afternoon at 4 o'clock. PHYSICAL EXAMINATION: VITAL SIGNS: Temperature 99.3, pulse 68, respiration 24, blood pressure 137/53, maximum temperature 100.8 yesterday at 1600 hours. GENERAL: Awake and alert, pleasant, in no acute distress. BMI 23.6. CV: S1 and S2. CHEST: Equal expansion. Decreased breath sounds. No acute distress. ABDOMEN: Soft and nontender. No distention. HEENT: Moist. No pallor. No JVD. EXTREMITIES: Moves all, weak. MEDICATION LIST: Reviewed and from Infectious Disease point of view, the patient is on Rocephin, vitamin D3, vitamin C, and zinc sulfate. LABORATORY STUDIES: White blood cells of 4.26, hemoglobin 10.3, and platelet 218. Sodium 138, potassium 3.4, and creatinine 1.16, improved from 1.59. Serology; coronavirus PCR positive on 01/28/2020. MICROBIOLOGY: Urine culture, Pseudomonas aeruginosa, 01/28/2020. Blood culture was positive for coag-negative Staph one set and one set was clean, both on 01/28/2020. RADIOLOGY STUDIES: No new radiology studies available. ASSESSMENT AND PLAN: 1. COVID-19 pneumonitis. 2. Pneumonia. 3. Urinary tract infection. 4. The patient is status post vancomycin. Continue with Rocephin. Follow with the labs. Monitor the patient clinically and monitor the temperature. As mentioned above, the patient had a T-max of 100.8 yesterday at 4 o'clock in the afternoon, but otherwise fever has resolved. Please refer to chart for more information. Dictated by Arnaldo Nichole PA-C (Al) Narciso Galvez MD /MODL /[id number]
--- NOTE | 2020-01-31 12:22 | NUR ---
Spoke with Dr. Michael liang. Stated it's okay if [facility]
--- NOTE | 2020-01-31 13:35 | NUR ---
Report given to Anjelica in [facility]. Patient is going to room 403.
--- NOTE | 2020-01-31 14:28 | NUR ---
Patient is notified that she is going to transfer to [facility] today, PIV on left hand discontinued, catheter tip intact, no bleeding noted. Awaiting for ambulance.
--- NOTE | 2020-01-31 16:12 | NUR ---
Transported patient via EMS stretcher. All personal belongings taken. Respiration even and unlabored without SOB.
== END 2020-01-31 13:54 | DRG 871 ==
LOC: ER 13:24 → ERHOLD 16:18 → MED/SURG3 18:47 → IMCU 01-29 21:04
PROVIDERS: ADMIT Internal Medicine; ATTEND Internal Medicine
DX: A41.9 Sepsis, unspecified organism (principal); U07.1 COVID-19; J12.89 Other viral pneumonia; J15.9 Unspecified bacterial pneumonia; N17.9 Acute kidney failure, unspecified; N39.0 Urinary tract infection, site not specified; R26.9 Unspecified abnormalities of gait and mobility; D64.9 Anemia, unspecified; F03.90 Unspecified dementia, unspecified severity, without behavioral disturbance, psychotic disturbance, mood disturbance, and anxiety; B96.89 Other specified bacterial agents as the cause of diseases classified elsewhere
CPT/HCPCS: 36415; 70450; 71045; 80048; 80053; 80061; 81001; 83036; 83735; 84100; 84484; 85025; 85730; 87040; 87071; 87086; 87186; 87205; 93005; 93306; 97139; 99284; J0360; J0456; J0696; J1644; J3370; J7040; J7050; Q0162; U0002

== ENCOUNTER 2020-09-26 11:24 | Emergency (ER) | payer OTHER, MEDICARE ==
[2020-09-26 12:19] LABS: BASOPHILS % 0.7 % (0.0-1.0); EOSINOPHILS # (AUTO) 0.1 (0.0-0.4); EOSINOPHILS % 2.6 % (0.0-6.0); HEMATOCRIT 37.3 % (34.2-44.1); HEMOGLOBIN 12.2 g/dL (12.0-16.0); LYMPHOCYTES # (AUTO) 0.8 (1.0-3.2); LYMPHOCYTES % 14.4 % (18.0-39.1); MEAN CORPUSCULAR HEMOGLOBIN 31.4 pg (28-32); MEAN CORPUSCULAR HGB CONC 32.7 g/dL (31-35); MEAN CORPUSCULAR VOLUME 95.9 fL (81-99); MONOCYTES # (AUTO) 0.3 (0.2-0.8); MONOCYTES % 5.8 % (4.4-11.3); NEUTROPHILS # (AUTO) 4.1 (2.1-6.9); NEUTROPHILS % 76.3 % (38.7-80.0); PLATELET COUNT 243 x10e3/uL (140-360); RED BLOOD COUNT 3.89 x10e6/uL (3.6-5.1); RED CELL DISTRIBUTION WIDTH 12.3 % (11.7-14.4)
[2020-09-26 12:47] LABS: ALBUMIN 4.1 g/dL (3.5-5.0); ALBUMIN/GLOBULIN RATIO 1.5 (0.8-2.0); ANION GAP 15.2 mmol/L (8-16); CREATININE, SERUM 1.86 mg/dL (0.57-1.11); POTASSIUM 4.2 mmol/L (3.5-5.1)
[2020-09-26 13:27] LABS: CLARITY,URINE CLEAR (CLEAR); COLOR,URINE YELLOW (YELLOW); KETONES,URINE NEGATIVE (NEGATIVE); LEUKOCYTE ESTERASE ,URINE TRACE (NEGATIVE); NITRITE,URINE NEGATIVE (NEGATIVE); PROTEIN,URINE DIPSTICK TRACE (NEGATIVE); URINE UROBILINOGEN 0.2 mg/dL (0.2 - 1)
[2020-09-26 13:43] LABS: BACTERIA,URINE RARE /HPF; EPITHELIAL CELLS,URINE RARE /LPF; RBC,URINE 0-5 /HPF (0-5); WBC,URINE (MAN) 0-5 /HPF (0-5)
== END 2020-09-26 14:02 | disposition home or self-care (01) ==
LOC: MERGE 12:44 → ER 12:44
DX: S00.83XA Contusion of other part of head, initial encounter (principal); W01.0XXA Fall on same level from slipping, tripping and stumbling without subsequent striking against object, initial encounter; Y93.01 Activity, walking, marching and hiking; Y92.008 Other place in unspecified non-institutional (private) residence as the place of occurrence of the external cause; E78.5 Hyperlipidemia, unspecified; G47.00 Insomnia, unspecified; F32.9 Major depressive disorder, single episode, unspecified
CPT/HCPCS: 36415; 70450; 71045; 72125; 72170; 80053; 81001; 84484; 85025; 93005; 99285

== ENCOUNTER → 2020-12-06 | Outpatient (CLI) | payer MEDICARE | LOC: MRI 09:55 | PROVIDERS: ATTEND Psychiatry & Neurology Neurology | DX: R41.3 Other amnesia (principal) | CPT/HCPCS: 70551 ==